=== PATIENT | female | born 1950 | race Caucasian/White ===

== ENCOUNTER 2016-01-25 12:49 | Outpatient (RCR) | payer BC ==
[~2016-01-25 12:49] MED LIST: ALPR0.254 PO; APIX5TAB PO; ASPI-586 PO; BUSP5TAB59 PO; CETI10TA17 PO; CHOL10003 PO; CYCL10TA9 PO; ENOX100D4 SC; ESCI20TA45 PO; ESCI5TAB PO; EXEN10PE SQ; FERR-84 PO; FLT05NA16; FURO40TA4 PO; HYDR-3812 PO; LEVO75TA6 PO; LEVO88TA26 PO; LOSA50TA6 PO; LYSI500T3 PO; METF-380 PO; METF500T4 PO; MULT-35 PO; OMEG-12 PO; OMEP20TA2 PO; POTA20PA28 PO; POTA20TA15 PO; SIMV40TA4 PO; TRM50T PO; WARF2TAB PO; WARF5TAB PO; ZINC50TA51 PO
[2016-01-25 13:04] LABS: BASOPHILS % (AUTO) 1 % (0-10); EOSINOPHILS # (AUTO) 0.1 10^3/uL (0.0-0.3); EOSINOPHILS % (AUTO) 2 % (0-10); LYMPHOCYTES % (AUTO) 51 % (12-44); MEAN CORPUSCULAR HEMOGLOBIN 29 PG (25-34); MEAN CORPUSCULAR HGB CONC 33 G/DL (32-36); MEAN CORPUSCULAR VOLUME 89 FL (80-99); MEAN PLATELET VOLUME 9.3 FL (7.4-10.4); MONOCYTES # (AUTO) 0.4 X 10^3 (0.0-1.0); MONOCYTES % (AUTO) 7 % (0-12); NEUTROPHILS # (AUTO) 2.3 X 10^3 (1.8-7.8); NEUTROPHILS % (AUTO) 39 % (42-75); PLATELET COUNT 240 10^3/uL (130-400); RED BLOOD COUNT 4.18 10^6/uL (4.35-5.85); RED CELL DISTRIBUTION WIDTH 13.5 % (10.0-14.5); WHITE BLOOD COUNT 5.8 10^3/uL (4.3-11.0)
[2016-01-25 13:31] LABS: ALANINE AMINOTRANSFERASE 25 U/L (0-55); ALBUMIN 4.5 G/DL (3.2-4.5); ANION GAP 10 MMOL/L (5-14); ASPARTATE AMINO TRANSFERASE 15 U/L (5-34); BILIRUBIN,TOTAL 0.5 MG/DL (0.1-1.0); BLOOD UREA NITROGEN 15 MG/DL (7-18); BUN/CREATININE RATIO 16; CALCIUM 9.6 MG/DL (8.5-10.1); CARBON DIOXIDE 25 MMOL/L (21-32); CHLORIDE 105 MMOL/L (98-107); CREATININE SERUM 0.91 MG/DL (0.60-1.30); GFR ESTIMATED > 60; GLUCOSE 107 MG/DL (70-105); POTASSIUM 4.3 MMOL/L (3.6-5.0); SODIUM 140 MMOL/L (135-145)
== END 2016-04-24 | disposition home or self-care (01) ==
LOC: ONC 12:49
PROVIDERS: ATTEND Internal Medicine Hematology & Oncology
DX: I27.82 Chronic pulmonary embolism (principal); I10 Essential (primary) hypertension; E78.5 Hyperlipidemia, unspecified; F32.9 Major depressive disorder, single episode, unspecified; E03.9 Hypothyroidism, unspecified; E11.9 Type 2 diabetes mellitus without complications; Z79.01 Long term (current) use of anticoagulants; Z79.899 Other long term (current) drug therapy
CPT/HCPCS: 36415; 80053; 85025; 99213

== ENCOUNTER 2016-05-03 20:09 | Outpatient (CLI) | payer BC | END 2016-05-04 06:50 | disposition home or self-care (01) | LOC: SLEEP 20:09 | PROVIDERS: ATTEND Internal Medicine Critical Care Medicine | DX: G47.33 Obstructive sleep apnea (adult) (pediatric) (principal) | CPT/HCPCS: 95811 ==

== ENCOUNTER 2016-05-09 13:16 | Outpatient (RCR) | payer BC ==
[2016-04-25 10:04] LABS: BASOPHILS % (AUTO) 0 % (0-10); EOSINOPHILS # (AUTO) 0.1 10^3/uL (0.0-0.3); EOSINOPHILS % (AUTO) 2 % (0-10); LYMPHOCYTES # (AUTO) 2.8 X 10^3 (1.0-4.0); LYMPHOCYTES % (AUTO) 41 % (12-44); MEAN CORPUSCULAR HEMOGLOBIN 28 PG (25-34); MEAN CORPUSCULAR HGB CONC 32 G/DL (32-36); MEAN CORPUSCULAR VOLUME 89 FL (80-99); MEAN PLATELET VOLUME 9.3 FL (7.4-10.4); MONOCYTES # (AUTO) 0.5 X 10^3 (0.0-1.0); MONOCYTES % (AUTO) 8 % (0-12); NEUTROPHILS # (AUTO) 3.4 X 10^3 (1.8-7.8); NEUTROPHILS % (AUTO) 50 % (42-75); PLATELET COUNT 280 10^3/uL (130-400); RED BLOOD COUNT 4.49 10^6/uL (4.35-5.85); RED CELL DISTRIBUTION WIDTH 13.7 % (10.0-14.5); WHITE BLOOD COUNT 6.8 10^3/uL (4.3-11.0)
[2016-04-26 09:03] LABS: HOMOCYSTEINE 13.2 umol/L (<=10.3)
[2016-05-01 06:46] LABS: PROTEIN C FUNCTIONAL ASSAY 206 % (70-130)
== END 2016-07-24 | disposition home or self-care (01) ==
LOC: ONC 13:16
PROVIDERS: ATTEND Internal Medicine Hematology & Oncology
DX: I27.82 Chronic pulmonary embolism (principal); I10 Essential (primary) hypertension; E78.5 Hyperlipidemia, unspecified; F32.9 Major depressive disorder, single episode, unspecified; E03.9 Hypothyroidism, unspecified; E11.9 Type 2 diabetes mellitus without complications; Z79.01 Long term (current) use of anticoagulants; Z79.899 Other long term (current) drug therapy
CPT/HCPCS: 36415; 81241; 83090; 85025; 85300; 85303; 85306; 86147; 99213

== ENCOUNTER → 2016-06-27 | Outpatient (CLI) | payer BC ==
--- NOTE | 2016-06-28 08:28 | Diagnostic Imaging Report ---
Bilateral screening mammogram The current study was also evaluated with a Computer Aided Detection (CAD) system. INDICATION: Screening. No current complaints stated on the questionnaire. COMPARISON: 07/03/15. FINDINGS: The breasts are composed of heterogeneously dense parenchyma which may decrease mammographic sensitivity. There is a medial right breast 7 mm asymmetry seen on the CC projection with no definite MLO correlate. The left breast demonstrate no change. No suspicious calcifications. IMPRESSION: Focal compression view and ultrasound evaluation for medial right breast asymmetry recommended. ACR BI-RADS Category 0: Incomplete. (Needs additional imaging evaluation). Result letter will be mailed to the patient. Note: At least 10% of breast cancer is not imaged by mammography. Dictated by: Dictated on workstation # [id number]
== END ==
LOC: RAD 10:52
PROVIDERS: ATTEND Internal Medicine
DX: Z12.31 Encounter for screening mammogram for malignant neoplasm of breast (principal)
CPT/HCPCS: 77067

== ENCOUNTER → 2016-07-09 | Outpatient (CLI) | payer BC ==
--- NOTE | 2016-07-09 12:12 | Diagnostic Imaging Report ---
EXAMINATION: Right breast diagnostic mammogram with a Computer Aided Detection (CAD) system. COMPARISON: 06/28/2013. FINDINGS: There is an asymmetry in the medial aspect of the right breast which appears less prominent on focal compression view and similar to the rest of the dense background parenchyma, suggestive of summation artifact. IMPRESSION: No definite underlying abnormality with the asymmetry likely related to summation artifact of parenchyma in the medial aspect of the right breast. The ultrasound evaluation is pending. ACR BI-RADS Category 0: Incomplete. (Needs additional imaging evaluation). Result letter will be mailed to the patient. Note: At least 10% of breast cancer is not imaged by mammography. Dictated by: Dictated on workstation # [id number]
--- NOTE | 2016-07-09 12:13 | Diagnostic Imaging Report ---
EXAMINATION: Right breast ultrasound. INDICATION: Right breast asymmetry. FINDINGS: Unremarkable breast parenchyma is seen with no focal lesion. IMPRESSION: Negative study. Additional mammographic imaging demonstrates no significant abnormality and the findings are likely secondary to summation artifact of parenchyma. Annual screening mammograms are recommended. ACR BI-RADS Category 1: Negative. Dictated by: Dictated on workstation # [id number]
== END ==
LOC: RAD 07:46
PROVIDERS: ATTEND Internal Medicine
DX: R92.8 Other abnormal and inconclusive findings on diagnostic imaging of breast (principal)

== ENCOUNTER → 2016-09-12 | Outpatient (CLI) | payer BC ==
--- NOTE | 2016-09-12 17:53 | Diagnostic Imaging Report ---
INDICATION: Injury to left foot. EXAMINATION: AP, oblique and lateral views of the left foot were obtained. FINDINGS: There is plantar calcaneal spurring. There is mild degenerative change of the first MTP joint. No acute fracture or acute bony abnormality is seen. IMPRESSION: Chronic changes with no acute bony abnormality. Dictated by: Dictated on workstation # [id number]
== END ==
LOC: RAD 15:25
PROVIDERS: ATTEND Internal Medicine
DX: S99.922A Unspecified injury of left foot, initial encounter (principal); M77.32 Calcaneal spur, left foot; X58.XXXA Exposure to other specified factors, initial encounter; Y99.8 Other external cause status
CPT/HCPCS: 73630

== ENCOUNTER → 2016-09-12 | Outpatient (CLI) | payer BC ==
--- NOTE | 2016-09-12 17:19 | Diagnostic Imaging Report ---
PROCEDURE: US left lower extremity venous. TECHNIQUE: Multiple real-time grayscale images were obtained over the left lower extremity in various projections. Additional duplex Doppler and color Doppler images were also obtained. INDICATION: Left foot swelling. Comparison: None available. Findings: The left common femoral, femoral and popliteal veins are patent without evidence of DVT. Visualized proximal aspects of the greater saphenous, deep femoral, posterior tibial and peroneal veins are also patent. All of the evaluated deep venous structures demonstrate normal compressibility and waveform augmentation where applicable. Impression: No left lower extremity deep venous thrombosis (DVT). Dictated by: Dictated on workstation # [id number]
== END ==
LOC: RAD 16:57
PROVIDERS: ATTEND Internal Medicine
DX: R22.42 Localized swelling, mass and lump, left lower limb (principal)

== ENCOUNTER → 2017-04-24 | Outpatient (CLI) | payer MEDICARE, OTHER ==
[~2017-04-24] MED LIST changes: +ACHD5005 PO; -HYDR-3812 PO
--- NOTE | 2017-04-24 12:24 | Diagnostic Imaging Report ---
INDICATION: Pneumonia, influenza. COMPARISON: 12/09/12 FINDINGS: Frontal and lateral views of the chest demonstrate clear lungs bilaterally. The heart is normal. There is no pneumothorax. Osseous structures age-appropriate. IMPRESSION: Negative chest. Dictated by: Dictated on workstation # [id number]
== END ==
LOC: RAD 11:37
PROVIDERS: ATTEND Internal Medicine
DX: J11.00 Influenza due to unidentified influenza virus with unspecified type of pneumonia (principal)
CPT/HCPCS: 71046

== ENCOUNTER → 2017-06-27 | Outpatient (CLI) | payer MEDICARE, OTHER ==
[~2017-06-27] MED LIST changes: +CATHETER FLUSH 10 ML SYR IV PRN; +IOHEXOL 350 MG/ML 150 ML (OMNIPAQUE 350) VIAL IV ONE; -METF500T4 PO; +METF500T5 PO; +NS 250 ML (IVPB) BAG IV ONE
[2017-06-27 11:40] LABS: CREATININE SERUM 1.02 MG/DL (0.60-1.30)
== END ==
LOC: CARD 10:27
PROVIDERS: ATTEND Nurse Practitioner Family
DX: R06.02 Shortness of breath (principal)
CPT/HCPCS: 36415; 82565; 84520; 93306

== ENCOUNTER → 2017-06-30 | Outpatient (CLI) | payer MEDICARE, OTHER ==
[~2017-06-30] MED LIST changes: -CATHETER FLUSH 10 ML SYR IV PRN; -IOHEXOL 350 MG/ML 150 ML (OMNIPAQUE 350) VIAL IV ONE; -NS 250 ML (IVPB) BAG IV ONE
--- NOTE | 2017-06-30 12:19 | Diagnostic Imaging Report ---
INDICATION: Routine screening. COMPARISON: 07/03/2015 and 06/27/2016. TECHNIQUE: Screening digital mammography was performed bilaterally with a Computer Aided Detection (CAD) system. 3D tomographic images were obtained and reviewed. FINDINGS: Both breasts are heterogeneously dense, limiting the sensitivity of mammography. No dominant mass or malignant appearing microcalcifications are seen. The axillae are unremarkable. IMPRESSION: No mammographic features suspicious for malignancy are identified. ACR BI-RADS Category 0: Incomplete. (Needs additional imaging evaluation). Result letter will be mailed to the patient. Note: At least 10% of breast cancer is not imaged by mammography. Dictated by: Dictated on workstation # [id number]
== END ==
LOC: RAD 10:00
PROVIDERS: ATTEND Internal Medicine
DX: Z12.31 Encounter for screening mammogram for malignant neoplasm of breast (principal)
CPT/HCPCS: 77067

== ENCOUNTER → 2017-07-02 | Outpatient (CLI) | payer MEDICARE, OTHER ==
[~2017-07-02] MED LIST changes: +RT-ALBUTEROL SULF 2.5 MG/3 ML PRE-MIX VIAL INH ONE
== END ==
LOC: RT 12:38
PROVIDERS: ATTEND Nurse Practitioner Family
DX: R06.02 Shortness of breath (principal)
CPT/HCPCS: 94060; 94726; 94729

== ENCOUNTER → 2018-08-24 | Outpatient (CLI) | payer MEDICARE, OTHER ==
[~2018-08-24] MED LIST changes: +METF-397 PO; -METF500T5 PO
== END ==
LOC: RT 07:56
PROVIDERS: ATTEND Nurse Practitioner Family
DX: G47.33 Obstructive sleep apnea (adult) (pediatric) (principal); R06.02 Shortness of breath; J45.998 Other asthma; J30.9 Allergic rhinitis, unspecified
CPT/HCPCS: 94060; 94726; 94729

== ENCOUNTER → 2018-08-24 | Outpatient (CLI) | payer MEDICARE, OTHER ==
[~2018-08-24] MED LIST changes: -RT-ALBUTEROL SULF 2.5 MG/3 ML PRE-MIX VIAL INH ONE
== END ==
LOC: CARD 12:15
PROVIDERS: ATTEND Internal Medicine Cardiovascular Disease
DX: R60.0 Localized edema (principal); E78.2 Mixed hyperlipidemia; E11.9 Type 2 diabetes mellitus without complications; R06.02 Shortness of breath; I08.1 Rheumatic disorders of both mitral and tricuspid valves
CPT/HCPCS: 93306

== ENCOUNTER → 2018-10-09 | Outpatient (CLI) | payer MEDICARE, OTHER ==
--- NOTE | 2018-10-09 20:18 | Diagnostic Imaging Report ---
INDICATION: Screening The current study was also evaluated with a Computer Aided Detection (CAD) system. 3-D Tomographic imaging was also performed. Comparison made with prior examinations from 06/30/2017, 06/27/2016, and 07/03/2015. FINDINGS: There are scattered fibroglandular densities bilaterally. There is no dominant mass, spiculated lesion, or suspicious calcification identified. The skin, nipples, and axillae are unremarkable. IMPRESSION: Negative. ACR BI-RADS Category 1: Negative. Result letter will be mailed to the patient. Note: At least 10% of breast cancer is not imaged by mammography. Dictated by: Dictated on workstation # [id number]
== END ==
LOC: RAD 09:12
PROVIDERS: ATTEND Internal Medicine
DX: Z12.31 Encounter for screening mammogram for malignant neoplasm of breast (principal)
CPT/HCPCS: 77067

== ENCOUNTER 2018-11-04 12:00 | Inpatient (IN) | payer MEDICARE, OTHER ==
[~2018-11-04] VITALS: Ht 172 cm; Wt 96.2 kg
[2019-01-26] MEDS ORDERED: CETI10TA17 PO (13:08)
[2019-01-26] MEDS ORDERED: ASPI-983 PO (13:08)
[2019-01-26] MEDS ORDERED: LYSI500T PO (13:08)
[2019-01-26] MEDS ORDERED: OMG1KC PO (13:08)
[2019-01-26] MEDS ORDERED: MULT1TAB69 PO (13:08)
[2019-01-26] MEDS ORDERED: FOLI0.8C PO (13:08)
[2019-01-26] MEDS ORDERED: GARL10002 PO (13:08)
[2019-01-26] MEDS ORDERED: CRAN1CAP3 PO (13:08)
[2019-01-26] MEDS ORDERED: ASCO10006 PO (13:08)
[2019-01-26] MEDS ORDERED: OLIV250C PO (13:08)
[2019-01-26] MEDS ORDERED: FERR240T15 PO (13:08)
[2019-01-26] MEDS ORDERED: METF-397 PO (13:12)
[2019-01-26] MEDS ORDERED: FURO40TA4 PO (13:12)
[2019-01-26] MEDS ORDERED: FLUT1DIS26 IH (13:12)
[2019-01-26] MEDS ORDERED: RT-ALBUINH INH (13:12)
[2019-01-26] MEDS ORDERED: MONT10TA24 PO (13:12)
[2019-01-26] MEDS ORDERED: OMEP40CA36 PO (13:12)
[2019-01-26] MEDS ORDERED: SIMV40TA4 PO (13:12)
[2019-01-26] MEDS ORDERED: MELO15TA39 PO (13:12)
[2019-01-26] MEDS ORDERED: ALPR0.5T7 PO (13:12)
[2019-01-26] MEDS ORDERED: LOSA100T57 PO (13:13)
[2019-01-26] MEDS ORDERED: LEVO88TA54 PO (13:24)
[2019-01-26] MEDS ORDERED: TRAM50TA2 PO (13:25)
--- NOTE | 2019-01-26 14:04 | NUR ---
PATIENT BROUGHT A MEDICATION IN TO PREOP. I CALLED [facility] AND [facility]IL ORDER TO VERIFY PRESCRIPTIONS. TREVOR FILLED: 12-31-18 ALPRAZOLAM 0.5MG PRN #60 01-12-19 TRAMADOL 50MG QID PRN #120 (WAS NOT ON HER LIST, I ADDED IT TO MED REC) FALGUNI FILLED: 01-13-19 OMEPRAZOLE 40MG #90 01-13-19 LEVOTHYROXINE 88MCG #90 (HAD 75MCG ON HER LIST, UPDATED WITH NEW DOSE) 01-13-19 LOSARTAN 100MG #90 01-13-19 SIMVASTATIN 40MG #90 01-13-19 ESCITALOPRAM 20MG #90 01-13-19 POTASSIUM 20MEQ #90 01-13-19 BUSPIRONE 5MG #90 01-13-19 METFORMIN 500MG #180 01-13-19 FUROSEMIDE 40MG #90 12-11-18 MONTELUKAST 10MG #90 12-04-18 MELOXICAM 15MG #90 ADVAIR 250 AND VENTOLIN ARE ON HER LIST HOWEVER HAVE NOT BEEN FILLED RECENTLY BY [facility] OR [facility]. I CALLED AND LEFT A MESSAGE WITH THE PATIENT TO CALL ME BACK TO SEE IF SHE GETS SAMPLES OF THESE AND TO ASK IF SHE IS TAKING TRAMADOL AND IF HER DOSE HAS CHANGED ON HER LEVOTHYROXINE. I HAVE NOT RECEIVED A CALL BACK AT THIS TIME, I WILL UPDATE WHEN SHE RETURNS MY CALL OTHERWISE I DID ADD THE TRAMADOL TO THE MED REC AND UPDATED THE DOSE OF THEY LEVOTHYROXINE TO WHAT WAS MOST RECENTLY FILLED. I LEFT THE ADVAIR AND VENTOLIN ON THE MED REC REPORTED ON HER HOME LIST. OTC MEDS: ASPIRIN 81MG DAILY ZYRTEC 10MG DAILY MTV DAILY L LYSINE 500MG DAILY FISH OIL 3 DAILY FERROUS GLUCONATE 27MG DAILY GARLIC 1000MG DAILY FOLIC ACID 800MCG DAILY CRANBERRY 2 DAILY VITAMIN C 1000MG DAILY OLIVE LEAF EXTRACT DAILY Addendum: 01/26/19 at 1500 by BILL STEEN [facility] PATIENT CALLED ME BACK AT THIS TIME AND VERIFIED SHE IS TAKING THE 88MCG LEVOTHYROXINE AND IS TAKING TRAMADOL RIGHT NOW THAT WAS NOT ON HER LIST. THEY STATE SHE DID GET SAMPLES OF THE ADVAIR AND VENTOLIN.
[2019-02-02] VITALS (12 sets, daily range): BP systolic 100–145; BP diastolic 52–86
[2019-02-02] MEDS ORDERED: CLINDAMYCIN 900 MG/50 ML IVPB 50 ML IV ONE ×2 (06:37→06:45)
[2019-02-02] MEDS ORDERED: GABAPENTIN 600 MG (NEURONTIN) TAB ONE (06:37)
[2019-02-02] MEDS ORDERED: ONDANSETRON 4 MG/2 ML (SDV) Z0FRAN ONE (06:37)
[2019-02-02] MEDS ORDERED: CELECOXIB 100 MG (CeleBREX) CAP PO ONE ×2 (06:37→06:45)
[2019-02-02] MEDS ORDERED: fentaNYL INJECTION 250 MCG/5 ML AMP ONE (06:43)
[2019-02-02] MEDS ORDERED: proPOfol 200 MG/20 ML (DIPRIVAN) VIAL IV ONE (06:43)
[2019-02-02] MEDS ORDERED: LIDOCAINE PF 2% 5 ML (XYLOCAINE) VIAL ONE ×2 (06:43→07:30)
[2019-02-02] MEDS ORDERED: SEVOFLURANE (ULTANE) 15 ML INHAL SOLN ONE ×9 (06:43→10:12)
[2019-02-02] MEDS ORDERED: MIDAZOLAM 2 MG/2 ML (VERSED) VIAL ONE (06:44)
[2019-02-02] MEDS ORDERED: ONDANSETRON 4 MG/2 ML (SDV) Z0FRAN IVP ONE (06:45)
[2019-02-02] MEDS ORDERED: fentaNYL INJECTION 100 MCG/2 ML AMP ONE ×2 (06:45→08:49)
[2019-02-02] MEDS ORDERED: GABAPENTIN 600 MG (NEURONTIN) TAB PO ONE (06:45)
[2019-02-02] MEDS: LACTATED RINGERS 1,000 ML IV PRN ×2 (06:52→08:50)
[2019-02-02] MEDS ORDERED: GENTAMICIN 40 MG/ML 2 ML INJ SDV ONE (06:53)
[2019-02-02] MEDS ORDERED: NEO/POLY/BAC (NEOSPORIN) OINT 15 GM TUBE ONE (06:54)
[2019-02-02] MEDS ORDERED: BUPIVACAINE 0.5% 30 ML (SENSORCAINE) VIAL ONE (07:30)
[2019-02-02] MEDS ORDERED: ONDANSETRON 4 MG/2 ML (SDV) Z0FRAN IV PRN (07:45)
[2019-02-02] MEDS ORDERED: ONDANSETRON 4 MG (ZOFRAN) ORAL DISSOLVE TAB PO PRN (07:45)
[2019-02-02] MEDS ORDERED: BISACODYL 10 MG SUPP (DULCOLAX) PR PRN (07:45)
[2019-02-02] MEDS ORDERED: morphine INJ 4 MG/ML 1 ML (VIAL/SYRINGE) IV PRN (07:45)
[2019-02-02] MEDS ORDERED: MILK OF MAGNESIA 400 MG/5 ML 30 ML UDC PO PRN (07:45)
[2019-02-02] MEDS ORDERED: D5 1/2 NS 1000 ML IV SOLUTION 1,000 ML IV SCH (07:45)
[2019-02-02] MEDS ORDERED: INTRA-ARTICULAR IU ONE ×4 (07:45)
[2019-02-02] MEDS ORDERED: diphenhydrAMINE 50 MG/ML INJ (BENADRYL) IV PRN (07:45)
--- NOTE | 2019-02-02 07:55 | Progress Note-Pre Operative ---
Pre-Operative Progress Note H&P Reviewed The H&P was reviewed, patient examined and no changes noted. Date Seen by Provider: Feb 02, 2019 Time Seen by Provider: 07:40 Date H&P Reviewed: Feb 02, 2019 Time H&P Reviewed: 07:40 Pre-Operative Diagnosis: Primary Osteoarthritis Left Knee JOSEPH ORTIZ DO Feb 02, 2019 07:55 POS
[2019-02-02] MEDS ORDERED: RT-ALBUTEROL SULF 2.5 MG/3 ML PRE-MIX VIAL INH PRN (08:00)
[2019-02-02] MEDS ORDERED: ALPRAZolam 0.5 MG (XANAX) TAB PO PRN (08:00)
[2019-02-02] MEDS ORDERED: TRANEXAMIC ACID 100 MG/ML 10 ML INJECTION IV ONE (08:12)
[2019-02-02] MEDS ORDERED: NON-FORMULARY MEDICATION 1 EA EA (Omeprazole 40 MG) PO SCH (09:00)
[2019-02-02] MEDS ORDERED: NON-FORMULARY MEDICATION 1 EA EA (Cetirizine HCl 10 MG) PO SCH (09:00)
[2019-02-02] MEDS: LEVOTHYROXINE 88 MCG (LEVOTHORID) TAB PO SCH (09:00)
[2019-02-02] MEDS ORDERED: FERROUS GLUCONATE 240 MG PO SCH (09:00)
[2019-02-02] MEDS ORDERED: NON-FORMULARY MEDICATION 1 EA EA (Metformin HCl 500 MG) PO SCH (09:00)
[2019-02-02] MEDS: LOSARTAN 100 MG (COZAAR) TABLET PO SCH (09:00)
[2019-02-02] MEDS ORDERED: NON-FORMULARY MEDICATION 1 EA EA (Fluticasone/Salmeterol (Advair 250-50 Diskus) 1 PUFF) IH SCH (09:00)
[2019-02-02] MEDS: ASPIRIN E.C. 81 MG (ECOTRIN) TAB PO SCH (09:00)
[2019-02-02] MEDS ORDERED: ASPIRIN E.C. 325 MG (ECOTRIN) TABLET PO SCH (09:00)
[2019-02-02] MEDS ORDERED: NON-FORMULARY MEDICATION 1 EA EA (Folic Acid 0.8 MG) PO SCH (09:00)
[2019-02-02] MEDS: FUROSEMIDE 40 MG (LASIX) TAB PO SCH (09:00)
--- NOTE | 2019-02-02 10:17 | Progress Note-Post Operative ---
Post-Operative Progess Note Surgeon (s)/Associate Creative Director (s) Surgeon JOSEPH ORTIZ DO Associate Creative Director: Isaias Smith PIPE FITTER SUPERVISOR MAINTENANCE-Isabella Pre-Operative Diagnosis Primary Osteoarthritis Left Knee Post-Operative Diagnosis same Procedure & Operative Findings Date of Procedure 02/02/19 Procedure Performed/Findings Left Total Knee Arthroplasty Anesthesia Type General with femoral and genicular block Estimated Blood Loss Estimated blood loss (mL): 200 ml Specimens/Packing Specimens Removed none JOSEPH ORTIZ DO Feb 02, 2019 10:17 POS
[2019-02-02] MEDS ORDERED: ONDANSETRON 4 MG/2 ML (SDV) Z0FRAN IVP PRN (10:30)
[2019-02-02] MEDS ORDERED: morphine INJ 10 MG/ML 1ML (SYR OR VIAL) IVP ONE (10:30)
[2019-02-02] MEDS ORDERED: HYDROmorphone 2 MG/ML VIAL (DILAUDID) IV ONE (10:30)
--- NOTE | 2019-02-02 11:20 | NUR ---
JAYLEN LOREDO admitted to room 431-1, with an admitting diagnosis of LEFT TKR, on 02/02/19 [address] [facility] via [facility], accompanied by STAFF.JAYLEN LOREDO V introduced to surroundings, call light, bed controls, phone, TV, temperature control, lights, meal times, smoking policy, visitor policy, side rail policy, bathrooms and showers. Patient Rights given to patient in the handbook.JAYLEN LOREDO V verbalizes understanding that [facility] is not responsible for the loss or damage to any personal effects or valuables that are kept in the patients posession during their hospitalization. The following Patient Care Plans were discussed with the PT: Discharge Planning, PAIN CONTROL,IV THERAPY, and POST-OP CARE AND TESTS AND PROCEDURES. JAYLEN LOREDO V verbalizes understanding of Interdisciplinary Patient Education. Patient and/or family were informed about the Rapid Response Team and its purpose.
[2019-02-02] MEDS: HYDROcodone/APAP 10 MG/325 MG (LORTAB) TAB PO PRN (11:57)
[2019-02-02] MEDS ORDERED: D5 1/2 NS 1000 ML IV SOLUTION 1,000 ML IV ONE (12:00)
--- NOTE | 2019-02-02 12:33 | Diagnostic Imaging Report ---
INDICATION: Postop total knee. FINDINGS: There is post operative swelling, gas, and fluid as expected findings with soft tissue tracey anteriorly. The hardware appears intact and in good alignment. The residual osseous structures show no fracture. IMPRESSION: No unexpected finding on the postop total left knee. Dictated by: Dictated on workstation # [id number]
[2019-02-02] MEDS: ENOXAPARIN 40 MG/0.4 ML (LOVENOX) SYR SC SCH (14:39)
[2019-02-02] MEDS: ACETAMINOPHEN 500 MG TAB (TYLENOL) PO SCH ×3 (14:48→23:49)
[2019-02-02] MEDS: KETOROLAC 30 MG/ML VIAL IV SCH ×3 (14:48→23:49)
[2019-02-02] MEDS: GABAPENTIN 100 MG (NEURONTIN) CAP PO SCH ×2 (14:48→21:29)
[2019-02-02] MEDS: D5 1/2 NS 1000 ML IV SOLUTION 1,000 ML IV SCH ×2 (15:22→17:42)
[2019-02-02] MEDS: PANTOPRAZOLE 40 MG (PROTONIX) TAB PO SCH (17:23)
[2019-02-02] MEDS: CLINDAMYCIN 900 MG/50 ML IVPB 50 ML IV SCH ×2 (17:23→23:50)
[2019-02-02] MEDS: KCL 20 MEQ TAB (K-DUR) PO SCH (17:23)
[2019-02-02] MEDS: metFORMIN 500 MG (GLUCOPHAGE) TAB PO SCH (17:29)
[2019-02-02] MEDS: RT-ADVAIR HFA 115/21 MCG PER PUFF IH SCH (20:20)
[2019-02-02] MEDS ORDERED: NON-FORMULARY MEDICATION 1 EA EA (Buspirone HCl 5 MG) PO SCH (21:00)
[2019-02-02] MEDS ORDERED: NON-FORMULARY MEDICATION 1 EA EA (Escitalopram Oxalate 20 MG) PO SCH (21:00)
[2019-02-02] MEDS: MONTELUKAST 10 MG (SINGULAIR) TAB PO SCH (21:29)
[2019-02-02] MEDS: SENNA W/DOCUSATE (SENOKOT S) TABLET PO SCH (21:30)
[2019-02-02] MEDS: busPIRone 5 MG (BUSPAR) TAB PO SCH (21:30)
[2019-02-03 00:30] VITALS: BP 107/66
[2019-02-03 04:00] VITALS: BP 125/70
[2019-02-03 04:58] LABS: HEMOGLOBIN 9.1 G/DL (11.5-16.0); MEAN PLATELET VOLUME 9.7 FL (7.4-10.4); RED CELL DISTRIBUTION WIDTH 13.5 % (10.0-14.5); WHITE BLOOD COUNT 8.1 10^3/uL (4.3-11.0)
[2019-02-03 05:19] LABS: CALCIUM 7.9 MG/DL (8.5-10.1); CREATININE SERUM 1.03 MG/DL (0.60-1.30); POTASSIUM 4.2 MMOL/L (3.6-5.0)
[2019-02-03] MEDS: LEVOTHYROXINE 88 MCG (LEVOTHORID) TAB PO SCH (05:19)
[2019-02-03] MEDS: ACETAMINOPHEN 500 MG TAB (TYLENOL) PO SCH ×4 (05:20→23:26)
[2019-02-03] MEDS: KETOROLAC 30 MG/ML VIAL IV SCH (05:22)
[2019-02-03] MEDS: GABAPENTIN 100 MG (NEURONTIN) CAP PO SCH ×3 (05:22→21:03)
[2019-02-03] MEDS ORDERED: FERROUS SULF 325 MG (IRON) TAB PO SCH (07:00)
[2019-02-03] MEDS: metFORMIN 500 MG (GLUCOPHAGE) TAB PO SCH ×2 (07:25→17:25)
[2019-02-03] MEDS: ENOXAPARIN 40 MG/0.4 ML (LOVENOX) SYR SC SCH (07:25)
[2019-02-03] MEDS: RT-ADVAIR HFA 115/21 MCG PER PUFF IH SCH ×2 (07:44→22:39)
--- NOTE | 2019-02-03 07:51 | Consultation - Hospitalist ---
HPI History of Present Illness: HPI/Chief Complaint Chief complaint: Left TKA by Dr. Yeh HPI: This is a 68[facility] clinic Pt of mine with diabetes, hypertension and hypothyroidism, who presents after an uncomplicated Left knee replacement by Dr. Yeh. She has. a history of DVT with PE so she will be placed on Lovenox per protocol and will require 4-6 weeks of anticoagulation afterwards per Dr. Pugh. Pt doing much better Will DC Lovenox and start on Eliquis and she will need six days of 2.5 mg twice daily Hgb 9.1 Doing very well and has not required narcotics Source: patient Exam Limitations: no limitations Date Seen 02/03/19 Attending Physician Jcarlos Yeh DO PCP Snow Gonzalez DO Referring Physician Date of Admission Feb 02, 2019 at 05:45 Home Medications & Allergies Home Medications Reviewed patient Home Medication Reconciliation performed by pharmacy medication reconciliations wafer fabrication technician and/or nursing. Patients Allergies have been reviewed. Allergies Allergies Coded Allergies Penicillins (Unverified Allergy, Severe, ANAPHYLAXIS, 01/26/19) Past Sowbvse-Kjjhwo-Gtohbm Hx Past Med/Social Hx: Reviewed Nursing Past Med/Soc Hx, Reviewed and Corrections made Patient Social History Marrital Status: Employed/Student: retired Alcohol Use: Denies Use Recreational Drug Use: No Smoking Status: Never a Smoker Physical Abuse Screen: No Sexual Abuse: No Recent Foreign Travel: No Contact w/other who traveled: No Recent Hopitalizations: No Recent Infectious Disease Expo: No Immunizations Up To Date Tetanus Booster (TDap): Unknown Pediatric: Yes Date of Pneumonia Vaccine: Dec 23, 2016 Seasonal Allergies Seasonal Allergies: Yes Past Medical History Surgeries: Hysterectomy, Orthopedic Respiratory: Pulmonary Embolism Currently Using CPAP: No Currently Using BIPAP: No Cardiac: Chronic Edema/Swelling, High Cholesterol, Hypertension Reproductive: No Sexually Transmitted Disease: No HIV/AIDS: No Female Reproductive Disorders: Denies Gastrointestinal: Gastroesophageal Reflux Musculoskeletal: Arthritis Endocrine: Hypothyroidsim, Diabetes, Non-Insulin dep Loss of Vision: Denies Hearing Impairment: Denies Psychosocial: Anxiety History of Blood Disorders: Yes (HX JAMEL PE AND DAUGTER OF BLOOD CLOT POST OP) Adverse Reaction to Blood Elias: No (N/A) Family History Arthritis 19 FATHER 19 MOTHER Cardiovascular disease 19 FATHER 19 MOTHER Diabetes mellitus 19 MOTHER FH: cancer 19 FATHER FH: lung cancer 19 FATHER Hypercholesterolemia 19 FATHER 19 MOTHER Myocardial infarction 19 MOTHER CAD Over 55 Years Old Review of Systems Constitutional: see HPI Musculoskeletal: joint pain Physical Exam Physical Exam Vital Signs Vital Signs - First Documented 02/02/19 06:25 Temp 35.6 Pulse 88 Resp 16 B/P (MAP) 145/78 Pulse Ox 96 O2 Delivery Room Air Capillary Refill : Less Than 3 Seconds Height, Weight, BMI Height: 5'8.00" Weight: 213lbs. 0.0oz. 96.089505sl; 32.51 BMI Method:Stated General Appearance: No Apparent Distress, WD/WN, Chronically ill Eyes: Bilateral Eye Normal Inspection, Bilateral Eye PERRL HEENT: PERRL/EOMI, Normal ENT Inspection, Pharynx Normal Neck: Full Range of Motion, Normal Inspection, Non Tender, Supple, Carotid Bruit Respiratory: Chest Non Tender, Lungs Clear, Normal Breath Sounds, No Accessory Muscle Use, No Respiratory Distress Cardiovascular: Regular Rate, Rhythm, No Edema, No Gallop, No JVD, No Murmur, Normal Peripheral Pulses Gastrointestinal: Normal Bowel Sounds, No Organomegaly, No Pulsatile Mass, Non Tender, Soft Back: Normal Inspection, No CVA Tenderness, No Vertebral Tenderness Extremity: Normal Capillary Refill, Normal Inspection, Normal Range of Motion, Non Tender, No Calf Tenderness, No Pedal Edema Neurologic/Psychiatric: Alert, Oriented x3, No Motor/Sensory Deficits, Normal Mood/Affect Skin: Normal Color, Warm/Dry Lymphatic: No Adenopathy Results Results/Procedures Labs Laboratory Tests 02/03/19 04:25 Patient resulted labs reviewed. Assessment/Plan Assessment and Plan Assess & Plan/Chief Complaint Assessment: Left knee replacement POD # 1 h/o PE remotely needs 6 weeks OAC DM Hypothyroidism HTN HLP Plan: Monitor closely Monitor labs OAC x 6 weeks Diagnosis/Problems Diagnosis/Problems (1) Status post left knee replacement (2) Diabetes mellitus (3) Hypothyroidism (4) Hypertension (5) Osteoarthritis of left knee Clinical Quality Measures DVT/VTE Risk/Contraindication: Risk Factor Score Per Nursin RFS Level Per Nursing on Admit: 4+=Very High SNOW GONZALEZ DO Feb 03, 2019 07:51 POS
[2019-02-03 08:00] VITALS: BP 162/67
[2019-02-03] MEDS: LORATADINE (CLARITIN) 10 MG TAB PO SCH (08:32)
[2019-02-03] MEDS: CLINDAMYCIN 900 MG/50 ML IVPB 50 ML IV SCH (08:32)
[2019-02-03] MEDS: LOSARTAN 100 MG (COZAAR) TABLET PO SCH (08:32)
[2019-02-03] MEDS: FUROSEMIDE 40 MG (LASIX) TAB PO SCH (08:32)
[2019-02-03] MEDS: FOLIC ACID 1 MG TAB PO SCH (08:32)
[2019-02-03] MEDS: PANTOPRAZOLE 40 MG (PROTONIX) TAB PO SCH (08:32)
[2019-02-03] MEDS: ASPIRIN E.C. 81 MG (ECOTRIN) TAB PO SCH (08:32)
[2019-02-03] MEDS: D5 1/2 NS 1000 ML IV SOLUTION 1,000 ML IV SCH ×2 (09:51→23:39)
--- NOTE | 2019-02-03 09:52 | NUR ---
DR. GONZALEZ IN PATIENT ROOM AT THIS TIME REPORTS THAT SHE WILL START ELIQUIS 2.5 MG PO BID X6 WEEKS FOR HISTORY OF DVT, THIS RN WILL START TODAY PER DR. GONZALEZ.
--- NOTE | 2019-02-03 09:52 | NUR ---
DISCHARGE PLANNING: This RN went in to see patient to mirian about needs for discharge. Patient reports feeling good and having been up ambulating in the benitez with PT and a walker. She is agreeable to HHC if it is ordered and has used [facility] for her mother previously and would use the if she needs HHC. She does already have all DME in home, walker, shower chair, BSC etc. No needs at this time.
--- NOTE | 2019-02-03 09:55 | Physical Therapy Evaluation ---
PT Evaluation-General Medical Diagnosis Admission Date Feb 02, 2019 at 05:45 Medical Diagnosis: S/P L TKA Onset Date: Feb 02, 2019 Therapy Diagnosis Therapy Diagnosis: abn gait, decreased strength and ROM Height/Weight Height (Feet): 5 Height (Inches): 8.00 Weight (Pounds): 213 Weight (Ounces): 0.0 Precautions Precautions/Isolations: Fall Prevention, Standard Precautions Weight Bear Status Right Lower Extremity: Right Full Weight Bearing Left Lower Extremity: Left Weight Bearing/Tolerated Referral Physician: Isaias Smith Reason for Referral: Evaluation/Treatment, Strengthening Medical History Additional Medical History Past Medical History Surgeries: Hysterectomy, Orthopedic Currently Using CPAP: No Currently Using BIPAP: No Cardiac: Chronic Edema/Swelling, High Cholesterol, Hypertension Reproductive: No Sexually Transmitted Disease: No HIV/AIDS: No Female Reproductive Disorders: Denies Gastrointestinal: Gastroesophageal Reflux Musculoskeletal: Arthritis Endocrine: Hypothyroidsim, Diabetes, Non-Insulin dep Loss of Vision: Denies Hearing Impairment: Denies Psychosocial: Anxiety History of Blood Disorders: Yes (HX JAMEL PE AND DAUGTER OF BLOOD CLOT POST OP) Adverse Reaction to Blood Elias: No (N/A) Reviewed History: Yes Social History Home: Single Level Current Living Status: Spouse Entry Into Home: Ramp PT Steps Into Home: 2 (into front door with ramp into side door) Prior Prior Level of Function SCALE: Activities may be completed with or without assistive devices. 2-Thonbjunlf-fmcklyk completes the activity by him/herself with no assistance from a helper. 5-Set-up or Clean-up Assistance-helper sets up or cleans up; patient completes activity. [place] assists only prior to or following the activity. 4-Supervision or Touching Assistance-helper provides verbal cues and/or touching/steadying and/or contact guard assistance as patient completes activity. Assistance may be provided throughout the activity or intermittently. 3-Partial/Moderate Assistance-helper does LESS THAN HALF the effort. Peninsula lifts, holds or supports trunk or limbs, but provides less than half the effort. 2-Substantial/Maximal Assistance-helper does MORE THAN HALF the effort. Peninsula lifts or holds trunk or limbs and provides more than half the effort. 2-Lvwtgjlah-oxxmyt does ALL the effort. Patient does none of the effort to complete the activity. Or, the assistance of 2 or more helpers is required for the patient to complete the activity. If activity was not attempted, code reason: 7-Patient Refused. 9-Not Applicable-not attempted and the patient did not perform the activity before the current illness, exacerbation or injury. 10-Not Attempted due to Environmental Limitations-(lack of equipment, weather restraints, etc.). 88-Not Attempted due to Medical Conditions or Safety Concerns. Bed Mobility: 6 Transfers (B,C,W/C): 6 Gait: 6 Stairs: 6 Indoor Mobility (Ambulation): Independent Stairs: Independent pt has FWW from her mother. PT Evaluation-Current Subjective pt in bed pre-tx agrees to therapy and denies any pain at this time. RN in room for meds at this time. Pt in bed post-tx with CPM in place set to 80flex and -2 past extension. pt with call light, room phone, tray table in reach with all needs met at this time. Pt/Family Goals To get back home to be indep. Objective Patient Orientation: Person, Place, Time, Situation Attachments: SCD's, Polar Pack, IV ROM/Strength ROM Lower Extremities LLE AROM flexion: 80degrees. extension: lacking 5 degrees of TKE Strength Lower Extremities LLE not tested secondary to post surgical status RLE grossly 5/5 throughout. Integumentary/Posture Integumentary see nursing notes Sensory Vision: Functional Hearing: Functional Sensation Right Lower Extremit: Intact Sensation Left Lower Extremity: Intact Transfers Roll Left to Right (QC): 6 Sit to Lying (QC): 6 Lying to Sitting/Side of Bed(Q: 6 Sit to Stand (QC): 5 Chair/Rej-xe-Baxav Xfer(QC): 4 Car Transfer (QC): 88 Gait Does the Patient Walk?: Yes Mode of Locomotion: Walk Anticipated Mode of Locomotion: Walk Walk 10 feet (QC): 5 Walk 50 ft with 2 Turns(QC): 5 Walk 150 ft (QC): 5 Walking 10ft/uneven surface-QC: 88 Distance: 150' Gait Assistive Device: FWW Comments/Gait Description pt given VC to allow L knee to flex pre swing to decrease the L hip hike she is using to clear the LLE at this time. Pt able to slightly increase knee flexion but continues to have slight hip hike. Wheelchair Training Does the Pt Use a Wheelchair?: No Wheel 50 ft with 2 turns (QC): 9 Wheel 150 ft (QC): 9 Type of Wheelchair: Manual Stairs 1 Step (curb) (QC): 88 4 Steps (QC): 88 12 Steps (QC): 88 Balance Sitting Static: Normal Sitting Dynamic: Normal Standing Static: Normal Standing Dynamic: Normal Picking up an Object (QC): 88 Treatment pt performed bed mobility training, transfer training, skilled ambulation training, education, and functional LE strengthening exercises (10 reps in supine: AP's, HS's, SLR, QS, GS, LAQ) Assessment/Needs pt is able to complete bed mobility independently and has no increase in baseline pain through session. pt is motivated and pleasant with therapy and is able to accept weight onto the LLE this session. Pt has slightly decreased stride length that increased with VC to increase hip flexion for swing. Rehab Potential: Good PT Leather Belt Shaper Goals Nursing Home Goals PT Leather Belt Shaper Goals Time Frame: Feb 10, 2019 Roll Left & Right (QC): 6 Sit to Lying (QC): 6 Lying-Sitting on Side/Bed(QC): 6 Sit to Stand (QC): 6 Chair/Vsk-ib-Cambp Xfer(QC): 6 Toilet Transfer (QC): 6 Car Transfer (QC): 88 Does the Patient Walk: Yes Walk 10 feet (QC): 6 Walk 50ft with 2 Turns (QC): 6 Walk 150 ft (QC): 6 Walking 10ft on Uneven Surface: 88 1 Step (curb) (QC): 4 4 Steps (QC): 4 12 Steps (QC): 88 Picking up an Object (QC): 88 Does the Pt use WC or Scooter?: No Type: Manual Type: Manual pt to walk 400' indep PT Plan Problem List Problem List: Activity Tolerance, Functional Strength, Safety, Balance, Gait, Transfer, Bed Mobility, ROM Treatment/Plan Treatment Plan: Continue Plan of Care Treatment Plan: Bed Mobility, Education, Functional Activity Ervin, Functional Strength, Gait, Safety, Therapeutic Exercise, Transfers Treatment Duration: Feb 10, 2019 Frequency: 11 times per week Estimated Hrs Per Day: .25 hour per day Patient and/or Family Agrees t: Yes Safety Risks/Education Patient Education: Gait Training, Transfer Techniques, Correct Positioning, Safety Issues Teaching Recipient: Patient Teaching Methods: Demonstration, Discussion Response to Teaching: Return Demonstration, Reinforcement Needed Discharge Recommendations Plan pt will perform skilled ambulation training, functional LE strengthening exercises, transfer training, and education. Therapy Discharge Recommendati: Other, See Comments (home with spouse) Time/GCodes Time In: 827 Time Out: 852 Total Billed Treatment Time: 25 Total Billed Treatment 1 visit RICHARD 10' GT 15' MANGO TIJERINA PT Feb 03, 2019 09:55 POS
--- NOTE | 2019-02-03 09:57 | Anesthesia-General Post-Op ---
General Patient Condition Mental Status/LOC: Same as Preop Cardiovascular: Satisfactory Nausea/Vomiting: Absent Respiratory: Satisfactory Pain: Controlled Complications: Absent Post Op Complications Complications None Follow Up Care/Instructions Patient Instructions None needed. Anesthesia/Patient Condition Patient Condition Patient is doing well, no complaints, stable vital signs, no apparent adverse anesthesia problems. No complications reported per nursing. D/C home per [facility] [place] Criteria: LUIS ARMANDO Ling CRNA Feb 03, 2019 09:57 POS
[2019-02-03 12:00] VITALS: BP 143/63
--- NOTE | 2019-02-03 12:25 | Progress Note ---
Subjective Date Seen by a Provider: Feb 03, 2019 Time Seen by a Provider: 12:23 Subjective/Events-last exam POD 1 s/p left TKA, no complaints. doing well. Ambulated 50ft this AM. Objective Exam Vital Signs Date Time Temp Pulse Resp B/P (MAP) Pulse Ox O2 Delivery O2 Flow Rate FiO2 02/03/19 08:00 35.6 83 18 162/67 (98) 98 Nasal Cannula 2.00 02/03/19 08:00 98 Room Air 02/03/19 07:51 94 Room Air 02/03/19 04:00 36.0 67 17 125/70 (88) 98 Nasal Cannula 2.00 02/03/19 00:30 36.2 63 17 107/66 (80) 97 Nasal Cannula 2.00 02/02/19 20:20 94 Room Air 02/02/19 20:15 Room Air 02/02/19 19:54 37.3 70 18 113/57 (75) 99 Nasal Cannula 2.00 02/02/19 16:18 37.1 75 16 100/52 (68) 91 Nasal Cannula 2.00 02/02/19 14:00 37.1 73 16 135/80 (98) 94 Room Air 02/02/19 13:56 98 Nasal Cannula 3.00 I & O 02/03/19 07:00 Intake Total 5250 ml Output Total 3600 ml Balance 1650 ml Capillary Refill : Less Than 3 Seconds General Appearance: No Apparent Distress Extremity: Normal Capillary Refill, Normal Inspection, Normal Range of Motion, Non Tender Neurologic/Psychiatric: Alert, Oriented x3, No Motor/Sensory Deficits, Normal Mood/Affect Skin: Normal Color, Warm/Dry (dressing left knee CDI) Results Lab Laboratory Tests 02/03/19 04:25: White Blood Count 8.1, Red Blood Count 3.19L, Hemoglobin 9.1L, Hematocrit 29L, Mean Corpuscular Volume 92, Mean Corpuscular Hemoglobin 29, Mean Corpuscular Hemoglobin Concent 31L, Red Cell Distribution Width 13.5, Platelet Count 192, Mean Platelet Volume 9.7, Sodium Level 140, Potassium Level 4.2, Chloride Level 108H, Carbon Dioxide Level 23, Anion Gap 9, Blood Urea Nitrogen 12, Creatinine 1.03, Estimat Glomerular Filtration Rate 53, BUN/Creatinine Ratio 12, Glucose Level 140H, Calcium Level 7.9L Assessment/Plan Assessment/Plan Assess & Plan/Chief Complaint A: s/p left TKA P: Continue current treatment, plan to DC to home with daily home healthcare physical therapy tomorrow. Clinical Quality Measures DVT/VTE Risk/Contraindication: Risk Factor Score Per Nursin RFS Level Per Nursing on Admit: 4+=Very High DAVID CID APRN Feb 03, 2019 12:25 POS
--- NOTE | 2019-02-03 13:30 | Occupational Therapy Eval ---
OT Evaluation-General/PLF Medical Diagnosis Admission Date Feb 02, 2019 at 05:45 Medical Diagnosis: S/P L TKA Onset Date: Feb 02, 2019 Therapy Diagnosis Therapy Diagnosis: Decreased functional mobility and ADL function Height/Weight Height (Feet): 5 Height (Inches): 8.00 Weight (Pounds): 213 Weight (Ounces): 0.0 Precautions Precautions/Isolations: Fall Prevention, Standard Precautions Weight Bear Status Weight Bearing Restriction: Full Weight Bearing Location Restriction: JAMEL FEET Referral Physician: Isaias Smith Referral Reason: Activity Tolerance, Self Care, Evaluation/Treatment, Strengthening/ROM Medical History Additional Medical History L TKA Current History chronic edema, high cholesterol, HTN, arthritis, DM, hypothyroidism, bilateral PE's, anxiety Reviewed History: Yes Social History Home: Single Level Current Living Status: Spouse Entry Into Home: Ramp Steps Into Home: 2 (into front door with ramp into side door) ADL-Prior Level of Function SCALE: Activities may be completed with or without assistive devices. 4-Evrwhzrsul-swqjgnf completes the activity by him/herself with no assistance from a helper. 5-Set-up or Clean-up Assistance-helper sets up or cleans up; patient completes activity. [place] assists only prior to or following the activity. 4-Supervision or Touching Assistance-helper provides verbal cues and/or touching/steadying and/or contact guard assistance as patient completes activity. Assistance may be provided throughout the activity or intermittently. 3-Partial/Moderate Assistance-helper does LESS THAN HALF the effort. [place] lifts, holds or supports trunk or limbs, but provides less than half the effort. 2-Substantial/Maximal Assistance-helper does MORE THAN HALF the effort. [place] lifts or holds trunk or limbs and provides more than half the effort. 3-Tqglrgxnh-xotnxv does ALL the effort. Patient does none of the effort to complete the activity. Or, the assistance of 2 or more helpers is required for the patient to complete the activity. If activity was not attempted, code reason: 7-Patient Refused. 9-Not Applicable-not attempted and the patient did not perform the activity before the current illness, exacerbation or injury. 10-Not Attempted due to Environmental Limitations-(lack of equipment, weather restraints, etc.). 88-Not Attempted due to Medical Conditions or Safety Concerns. 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 Pt's mo ther living with niece until pt able to take care of mother. Occupation: retired, caregiver (see above) Drive Self: No OT Current Status Subjective Pt seen in recliner chair, present. Pt states no pain and states she has not experienced pain post-operation. Pt agreeable to OT evaluation. Mental Status/Objective Patient Orientation: Person, Place, Situation, Normal For Age Attachments: IV Current Glasses/Contacts: Yes Hearing Aids: No Dentures/Partials: No Hand Dominance: Right Upper Extremity ROM WFL BUE Upper Extremity Coordination WFL BUE Upper Extremity Sensation WFL BUE Upper Extremity Strength WFL BUE 4+/5 bilaterally ADL-Treatment Eating (QC): 6 Oral Hygiene (QC): 7 Shower/Bathe Self (QC): 7 Upper Body Dressing (QC): 7 Lower Body Dressing (QC): 6 On/Off Footwear (QC): 6 Toileting Hygiene (QC): 6 Toilet Transfer (QC): 6 Other Treatments Pt denies need for bathroom, states she was able to go to bathroom with FWW with no difficulties getting pants on/ off, pt able to don/ doff sock in recliner chair demonstrating abilities to thread clothing on/ off foot. Pt denies out of chair activities as she just returned from bathroom. Pt states present throughout day, both retired. Pt states she doesn't believe she will have any difficulties with ADLs at home, pt and OT address different environmental aspects of home, agree grab bars would be beneficial in long run. Pt educated on benefits of movement throughout day. Pt left in recliner chair with present, call light in reach, all needs met. Education OT Patient Education: Correct positioning, Purpose of tx/functional activities, Safety issues Teaching Recipient: Patient, Significant Other Teaching Methods: Demonstration, Discussion Response to Teaching: Verbalize Understanding, Return Demonstration OT Insole Cementer Goals Insole Cementer Goals Time Frame: Feb 03, 2019 Eating (QC): 6 Oral Hygiene (QC): 7 Toileting Hygiene (QC): 6 Shower/Bathe Self (QC): 7 Upper Body Dressing (QC): 7 Lower Body Dressing (QC): 6 On/Off Footwear (QC): 6 1=Demonstrate adherence to instructed precautions during ADL tasks. 2=Patient will verbalize/demonstrate understanding of assistive devices/modifications for ADL. 3=Patient will improve strength/tolerance for activity to enable patient to perform ADL's. OT Education/Plan Problem List/Assessment Assessment: No Skilled OT Needs ID'd Discharge Recommendations Plan/Recommendations: Discharge/Goals Met Equpiment Recommendations-D/C: Rails on Tub/Shower Treatment Plan/Plan of Care Treatment,Training & Education: Yes Patient would benefit from OT for education, treatment and training to promote i ndependence in ADL's, mobility, safety and/or upper extremity function for ADL's. Plan of Care: OTHER (eval only) Treatment Duration: Feb 03, 2019 Frequency: 1 time per week (eval only) Rehab Potential: Good Time/GCodes Start Time: 11:30 Stop Time: 11:41 Total Time Billed (hr/min): 11 Billed Treatment Time ANSELMO Medina (11) MICKIE NÚÑEZ OTR Feb 03, 2019 13:30 POS
--- NOTE | 2019-02-03 13:36 | Physical Therapy Daily Note ---
PT Daily Note-Current Subjective Patient agrees to PT at this time. Reports she is not having any pain in her knee, but some discomfort in thigh which she has been massaging. Reports she has used CPM twice today. Pain Numeric Pain Scale: 0-No Pain Location: No Pain Reported Mental Status Patient Orientation: Person, Place, Time, Situation Attachments: SCD's, Polar Pack, IV Transfers SCALE: Activities may be completed with or without assistive devices. 0-Ipmdbuvwhc-llklgpc completes the activity by him/herself with no assistance from a helper. 5-Set-up or Clean-up Assistance-helper sets up or cleans up; patient completes activity. [place] assists only prior to or following the activity. 4-Supervision or Touching Assistance-helper provides verbal cues and/or touching/steadying and/or contact guard assistance as patient completes activity. Assistance may be provided throughout the activity or intermittently. 3-Partial/Moderate Assistance-helper does LESS THAN HALF the effort. [place] lifts, holds or supports trunk or limbs, but provides less than half the effort. 2-Substantial/Maximal Assistance-helper does MORE THAN HALF the effort. [place] lifts or holds trunk or limbs and provides more than half the effort. 4-Elikcckiu-ehmsja does ALL the effort. Patient does none of the effort to complete the activity. Or, the assistance of 2 or more helpers is required for the patient to complete the activity. If activity was not attempted, code reason: 7-Patient Refused. 9-Not Applicable-not attempted and the patient did not perform the activity before the current illness, exacerbation or injury. 10-Not Attempted due to Environmental Limitations-(lack of equipment, weather restraints, etc.). 88-Not Attempted due to Medical Conditions or Safety Concerns. Roll Left & Right (QC): 6 Sit to Lying (QC): 6 Lying to Sitting/Side of Bed(Q: 6 Sit to Stand (QC): 5 Weight Bearing Right Lower Extremity: Right Full Weight Bearing Left Lower Extremity: Left Weight Bearing/Tolerated Gait Training Does the Patient Walk?: Yes Distance: 150' Walk 10 feet (QC): 5 Walk 50 ft with 2 Turns(QC): 5 Walk 150 ft (QC): 5 Gait Assistive Device: FWW Antalgic gait, toe walking, hip hike. Exercises Supine Ex: Heel Slides Supine Reps: 10 Assessment Patient supine in bed with polar pack and CPM on prior to tx. Performed bed mobility independently and able to stand without assistance. Patient performed toilet transfer without assistance. Ambulated 150' with antalgic gait with FWW without assistance. Patient returned to bed with polar pack on and HOB elevated for lunch. PT Glass Inspector Goals Retirement Goals PT Glass Inspector Goals Time Frame: Feb 10, 2019 Roll Left & Right (QC): 6 Sit to Lying (QC): 6 Lying-Sitting on Side/Bed(QC): 6 Sit to Stand (QC): 6 Chair/Mrw-vf-Ksmic Xfer(QC): 6 Toilet Transfer (QC): 6 Car Transfer (QC): 88 Does the Patient Walk: Yes Walk 10 feet (QC): 6 Walk 50ft with 2 Turns (QC): 6 Walk 150 ft (QC): 6 Walking 10ft on Uneven Surface: 88 1 Step (curb) (QC): 4 4 Steps (QC): 4 12 Steps (QC): 88 Picking up an Object (QC): 88 Does the Pt use WC or Scooter?: No Type: Manual Type: Manual PT Plan Treatment/Plan Treatment Plan: Continue Plan of Care Treatment Plan: Bed Mobility, Education, Functional Activity Ervin, Functional Strength, Gait, Safety, Therapeutic Exercise, Transfers Treatment Duration: Feb 10, 2019 Frequency: 11 times per week Estimated Hrs Per Day: .25 hour per day Patient and/or Family Agrees t: Yes Time/GCodes Time In: 1255 Time Out: 1312 Total Billed Treatment Time: 17 Total Billed Treatment 1 visit FA 17min ADRIANA SANDOVAL RACQUET MAKER Feb 03, 2019 13:36 POS
--- NOTE | 2019-02-03 14:08 | OPERATIVE REPORT ---
DATE OF SERVICE: 02/02/2019 PREOPERATIVE DIAGNOSIS: Primary osteoarthritis, left knee. POSTOPERATIVE DIAGNOSIS: Primary osteoarthritis, left knee. PROCEDURE: Left total knee arthroplasty. SURGEON: Joseph Ortiz DO ENGINEERING MECHANIC: LAURA Castillo SURGICAL RESTAURANT EXPEDITOR DUTIES: Isaias Smith, surgical instruments inspector was utilized throughout the entire procedure for patient positioning, soft tissue retraction, assistance in placement of total knee implants, wound closure, dressing application and the patient transfer. ANESTHESIA: General with femoral and genicular nerve block. ESTIMATED BLOOD LOSS: 2 mL. COMPLICATIONS: None. OPERATIVE TIME: Please see anesthesia report. INDICATIONS AND FINDINGS: The patient is a 68-year-old female seen with chief complaint of progressive left knee pain, nonresponsive to conservative treatment. The patient was taken to surgery where total knee arthroplasty was performed on the left without complication utilizing the Biomet Digital Luxuryguard total knee system with a press fit 62.5 mm femoral component, a 75 mm cemented fixed I-beam tibial component, a 34 mm three prong cemented all polyethylene standard patellar component with a 12 mm anterior stabilized tibial bearing implant. Palacos bone cement was utilized. PROCEDURE IN DETAIL: The patient was seen by anesthesia preoperatively and under ultrasound guidance, a femoral and genicular nerve block was performed on the left to decrease postoperative pain and decrease amount of medication required during the surgical procedure. The patient was transported to the operating room where general inhalation anesthetic was administered. A well-padded pneumatic tourniquet was placed about the upper aspect of left thigh. A ChloraPrep and sterile drape of the left lower extremity was performed. The left leg was elevated, exsanguinated and the tourniquet was inflated to 300 mmHg pressure. An anterior longitudinal midline incision was then made. Incision was deepened through a medial parapatellar incision. Patella was subluxed laterally. Osteophytes from the distal femur were removed with a bone rongeur. A commercial helicopter pilot hole was then developed in the distal femur and intramedullary maribel was inserted utilizing a 5 degree valgus cutting angle, a distal femoral cutting guide was assembled and distal femoral osteotomy was completed. The distal femur was sized to a 62.5 mm femoral component, a 4-way cutting block was assembled. Anterior, posterior and chamfer cuts of the distal femur were made. The tibia was subluxed anteriorly. Remnants of the medial and lateral menisci as well as the anterior cruciate ligament were excised. A commercial helicopter pilot hole was then drilled in the proximal tibia. An intramedullary maribel was inserted measuring off the exposed bone of the proximal and medial tibia. A proximal tibial cutting guide was assembled and a proximal tibial osteotomy was completed. Additional subperiosteal dissection was performed over the proximal medial tibia with osteophytes removed from the medial tibial plateau. The knee could be fully extended with a 10 mm gap sizer. Osteophytes from the rim of the patella were removed with a bone rongeur. The posterior aspect of the patella was resected through a cutting guide and drilled through the drill guide. Provisional components were inserted. The knee was cycled through a range of motion. Rotation of the tibial component was noted and marked on the proximal tibia. The proximal tibia was then broached to accept the I-beam stem portion of the implant. The bony surfaces were irrigated extensively with normal saline solution. Palacos bone cement was mixed. This was then pressurized in the proximal tibia and the tibial component was cemented in place. The femoral component was press fit into place. The patellar component was cemented in place and held with a clamp. Excess of cement was removed. The tourniquet was released. Hemostasis was obtained with electrocautery. The knee was cycled through a range of motion. The knee was found to be stable in mid range flexion and full flexion with full extension obtained with a 12 mm spacer. The provisional spacer was removed and anterior stabilized 12 mm spacer was inserted and locked anteriorly with a locking bar. The knee was placed in 90 degrees of flexion. The medial retinaculum was closed with multiple interrupted gucwoe-kw-wiobk sutures of #1 Vicryl reinforced with a running suture of #1 Stratafix. The subcutaneous tissues were closed with 0 and 2-0 Vicryl suture. The skin was closed with stainless steel tracey and Adaptic Neosporin bulky dressing was placed about the left knee. The patient was awakened and was transported to postop recovery with anesthesia personnel present in satisfactory condition. Job ID: [id number] DocumentID: [id number] Dictated Date: 02/03/2019 10:23:26 Home Worker Date: 02/03/2019 14:06:55 Dictated By: JOSEPH ORTIZ DO
[2019-02-03] MEDS: HYDROcodone/APAP 10 MG/325 MG (LORTAB) TAB PO PRN ×2 (14:15→21:04)
[2019-02-03] MEDS: BACLOFEN 10 MG (LIORESAL) TAB PO PRN ×2 (14:15→21:03)
[2019-02-03 15:59] VITALS: BP 148/72
[2019-02-03] MEDS: KCL 20 MEQ TAB (K-DUR) PO SCH (17:25)
[2019-02-03 20:07] VITALS: BP 148/69
[2019-02-03] MEDS: SENNA W/DOCUSATE (SENOKOT S) TABLET PO SCH (21:03)
[2019-02-03] MEDS: MONTELUKAST 10 MG (SINGULAIR) TAB PO SCH (21:03)
[2019-02-03] MEDS: busPIRone 5 MG (BUSPAR) TAB PO SCH (21:03)
[2019-02-04 00:20] VITALS: BP 124/57
[2019-02-04] MEDS: HYDROcodone/APAP 10 MG/325 MG (LORTAB) TAB PO PRN ×3 (02:39→09:18)
[2019-02-04 04:40] VITALS: BP 138/67
[2019-02-04 06:06] LABS: HEMOGLOBIN 8.9 G/DL (11.5-16.0); MEAN PLATELET VOLUME 9.8 FL (7.4-10.4); RED CELL DISTRIBUTION WIDTH 13.6 % (10.0-14.5); WHITE BLOOD COUNT 7.9 10^3/uL (4.3-11.0)
[2019-02-04] MEDS: metFORMIN 500 MG (GLUCOPHAGE) TAB PO SCH (06:20)
[2019-02-04] MEDS: GABAPENTIN 100 MG (NEURONTIN) CAP PO SCH (06:20)
[2019-02-04] MEDS: ACETAMINOPHEN 500 MG TAB (TYLENOL) PO SCH (06:20)
[2019-02-04] MEDS: LEVOTHYROXINE 88 MCG (LEVOTHORID) TAB PO SCH (06:20)
[2019-02-04] MEDS: ENOXAPARIN 40 MG/0.4 ML (LOVENOX) SYR SC SCH (06:21)
[2019-02-04] MEDS: BACLOFEN 10 MG (LIORESAL) TAB PO PRN (06:28)
--- NOTE | 2019-02-04 06:30 | D/C HH Face to Face Order ---
D/C Face to Face Orders Reconcile Patient Problems Problems Reviewed?: Yes Instructions for Patient Via [employer], Patient Instructions/FollowUp: f/u [address] Yeh's TKA DC instructions Continue CPM 6 hrs per day, advance as tolerated continue polar care unit daily island dressing changes if wound is draining Continue KATIE varghese Walker to ambulate Physician to follow Patient: Ruba Discharge Diet for Home: No Restrictions Patient Problems: primary OA left knee S/P left TKA Goals for Patient: improvement with ADLs Patient Data-Allergies,Ht & Wt Patient Allergies: Coded Allergies: Penicillins (Unverified Allergy, Severe, ANAPHYLAXIS, 01/26/19) Height (Feet): 5 Height (Inches): 8.00 Weight (Pounds): 213 Weight (Ounces): 0.0 Home Health Need/Face to Face Date of Face to Face: Feb 04, 2019 Clinical Findings: Muscle weakness, Pain with ambulation, Unsteady gait I have seen Pt ovwd-ns-bcty: Yes Discharged To: Home Diagnosis/Conditions: primary OA left knee S/P left TKA Patient is Homebound due to: Muscle weakness, Pain w/ambulation Homebound Status Due to the above stated illness, injury or surgical procedure (medical condition or diagnosis) and associated clinical findings, the patient is homebound because of his/her inability to leave home except with aid of a supportive device and/or person AND leaving the home requires a considerable and taxing effort or is medically contraindicated. Pt req the following assistanc: Walker Home Health Nursing Orders Home Health Services Order: Physical Therapy-Evaluate & Treat Physical therapy 5x/week x 2 weeks to treat gait and knee ROM Nursing to remove tracey and apply steri strips on 02/11/19 Home Health Infusion Therapy Line Start Date: Feb 02, 2019 Therapy Orders Therapy Orders: Physical Therapy Therapy Specific Orders: Gait training, Increase strength/endurance, Restore ROM Certify Stmt I certify that this patient is under my care and that I, a nurse practitioner or a physician; a machine assistant working with me, had a face to face encounter that - meets the physician face to face encounter requirements with this patient as dated. DAVID CID APRN Feb 04, 2019 06:30 POS
--- NOTE | 2019-02-04 06:33 | Discharge Summary ---
Diagnosis/Chief Complaint Date of Admission Feb 02, 2019 at 05:45 Date of Discharge 02/04/2019 Discharge Date: Feb 04, 2019 Admission Diagnosis Admission Diagnosis Primary OA Left Knee Discharge Diagnosis Primary OA left knee S/P left TKA Acute blood loss anemia Reason Hospital Visit Left TKA Discharge Summary Procedures: Left Total Knee Arthroplasty Consultations Internal medicine for medical management Discharge Physical Examination Allergies: Coded Allergies: Penicillins (Unverified Allergy, Severe, ANAPHYLAXIS, 01/26/19) Vitals & I&Os Vital Signs Date Time Temp Pulse Resp B/P (MAP) Pulse Ox O2 Delivery O2 Flow Rate FiO2 02/04/19 04:40 36.5 76 20 138/67 (90) 97 Room Air 02/03/19 12:00 2.00 General Appearance: Alert, Oriented X3 HEENT: PERRLA Respiratory: Clear to Auscultation Cardiovascular: Regular Rate Abdominal: Soft, No Tenderness Extremities: No Clubbing, No Cyanosis Skin: No Rashes, No Breakdown Neuro: Strength at 5/5 X4 Ext, Normal Tone, Sensation Intact Psych/Mental Status: Mental Status NL Hospital Course Was the Problem List Reviewed?: Yes Overall the hospital course was uneventful. On the day of admission she underwent a left TKA. She was hospitalized for pain control, DVT prophylaxis, and IV antibiotic prophylaxis. She progressed well and was discharged to home on POD 2 with home healthcare. Pending Labs Laboratory Tests 02/04/19 05:50: White Blood Count 7.9, Red Blood Count 3.10, Hemoglobin 8.9, Hematocrit 28, Mean Corpuscular Volume 90, Mean Corpuscular Hemoglobin 29, Mean Corpuscular Hemoglobin Concent 32, Red Cell Distribution Width 13.6, Platelet Count 184, Mean Platelet Volume 9.8, Sodium Level [Pending], Potassium Level [Pending], Chloride Level [Pending], Carbon Dioxide Level [Pending], Anion Gap [Pending], Blood Urea Nitrogen [Pending], Creatinine [Pending], BUN/Creatinine Ratio [Pending], Glucose Level [Pending], Calcium Level [Pending] Discharge Condition at discharge good Instructions to patient/family Please see electronic discharge instructions given to patient. Discharge Medications Reviewed and agree with Discharge Medication list on patient's Discharge Instruction sheet Clinical Quality Measures DVT/VTE Risk/Contraindication: Risk Factor Score Per Nursin RFS Level Per Nursing on Admit: 4+=Very High PALAK,DAVID E MACHINIST/MACHINE BUILDER Feb 04, 2019 06:33 POS
[2019-02-04] MEDS ORDERED: SENN-20 PO (06:37)
[2019-02-04] MEDS ORDERED: HYDR-3820 PO (06:37)
[2019-02-04 06:51] LABS: CALCIUM 8.5 MG/DL (8.5-10.1); CREATININE SERUM 0.99 MG/DL (0.60-1.30); POTASSIUM 3.8 MMOL/L (3.6-5.0)
[2019-02-04] MEDS: RT-ADVAIR HFA 115/21 MCG PER PUFF IH SCH (07:40)
[2019-02-04 08:00] VITALS: BP 148/71
[2019-02-04] MEDS: PANTOPRAZOLE 40 MG (PROTONIX) TAB PO SCH (09:17)
[2019-02-04] MEDS: LORATADINE (CLARITIN) 10 MG TAB PO SCH (09:17)
[2019-02-04] MEDS: ASPIRIN E.C. 81 MG (ECOTRIN) TAB PO SCH (09:17)
[2019-02-04] MEDS: LOSARTAN 100 MG (COZAAR) TABLET PO SCH (09:17)
[2019-02-04] MEDS: FUROSEMIDE 40 MG (LASIX) TAB PO SCH (09:17)
[2019-02-04] MEDS: FOLIC ACID 1 MG TAB PO SCH (09:17)
--- NOTE | 2019-02-04 09:23 | NUR ---
PRIOR TO A.M. MEDICATIONS PULSE WAS 82 B/P WAS 148/71
--- NOTE | 2019-02-04 09:30 | NUR ---
DISCHARGE PLANNING: Patient is discharged today to home with Home Health Care. First choice was [facility] however, they are filled in their schedule for physical therapy for the next two weeks. I have given the patient her other options and she chose [facility]. Referral faxed and confirmed. No other needs at this time.
--- NOTE | 2019-02-04 09:47 | Progress Note - Hospitalist ---
Subjective HPI/CC On Admission Date Seen by Provider: Feb 04, 2019 Time Seen by Provider: 09:15 Chief complaint: Left TKA by Dr. Yeh HPI: This is a 68yoWF clinic Pt of mine with diabetes, hypertension and hypothyroidism, who presents after an uncomplicated Left knee replacement by Dr. Yeh. She has. a history of DVT with PE so she will be placed on Lovenox per protocol and will require 4-6 weeks of anticoagulation afterwards per Dr. Pugh. Pt doing much better Will DC Lovenox and start on Eliquis and she will need six days of 2.5 mg twice daily Hgb 9.1 Doing very well and has not required narcotics Subjective/Events-last exam Pt doing very well. No narcotics used. Eliquis if 2.5 Mg BID will be maintained for a total of 6 weeks, coupons given and everything was within normal limits at discharge. No BM yet but she will use her medication she has at home when she is discharged. Review of Systems General: Fatigue Musculoskeletal: leg pain Objective Exam Vital Signs Vital Signs Date Time Temp Pulse Resp B/P (MAP) Pulse Ox O2 Delivery O2 Flow Rate FiO2 02/04/19 08:00 36.6 82 18 148/71 (96) 99 Room Air 02/03/19 12:00 2.00 Capillary Refill : Less Than 3 Seconds General Appearance: No Apparent Distress, WD/WN Respiratory: Lungs Clear Cardiovascular: Regular Rate, Rhythm Neurologic/Psychiatric: Alert, Oriented x3, No Motor/Sensory Deficits, Normal Mood/Affect Results/Procedures Lab Laboratory Tests 02/04/19 05:50 Patient resulted labs reviewed. Assessment/Plan Assessment and Plan Assess & Plan/Chief Complaint Assessment: Left knee replacement POD # 2 h/o PE remotely needs 6 weeks OAC DM Hypothyroidism HTN HLP Plan: Monitor closely Monitor labs OAC x 6 weeks Diagnosis/Problems Diagnosis/Problems (1) Status post left knee replacement (2) Diabetes mellitus (3) Hypothyroidism (4) Hypertension (5) Osteoarthritis of left knee Clinical Quality Measures DVT/VTE Risk/Contraindication: Risk Factor Score Per Nursin RFS Level Per Nursing on Admit: 4+=Very High DONA GONZALEZ DO Feb 04, 2019 09:47 POS
--- NOTE | 2019-02-04 09:54 | Physical Therapy Daily Note ---
PT Daily Note-Current Subjective Patient agrees to PT at this time. Reports no pain in knee. States she is going home today. Pain Numeric Pain Scale: 0-No Pain Location: No Pain Reported Mental Status Patient Orientation: Person, Place, Time, Situation Attachments: SCD's, Polar Pack Transfers SCALE: Activities may be completed with or without assistive devices. 2-Iwajvkoogq-ejujbjj completes the activity by him/herself with no assistance fr om a helper. 5-Set-up or Clean-up Assistance-helper sets up or cleans up; patient completes activity. [place] assists only prior to or following the activity. 4-Supervision or Touching Assistance-helper provides verbal cues and/or touching/steadying and/or contact guard assistance as patient completes activity. Assistance may be provided throughout the activity or intermittently. 3-Partial/Moderate Assistance-helper does LESS THAN HALF the effort. [place] lifts, holds or supports trunk or limbs, but provides less than half the effort. 2-Substantial/Maximal Assistance-helper does MORE THAN HALF the effort. [place] lifts or holds trunk or limbs and provides more than half the effort. 6-Imbfbwwgh-uvnnpm does ALL the effort. Patient does none of the effort to complete the activity. Or, the assistance of 2 or more helpers is required for the patient to complete the activity. If activity was not attempted, code reason: 7-Patient Refused. 9-Not Applicable-not attempted and the patient did not perform the activity before the current illness, exacerbation or injury. 10-Not Attempted due to Environmental Limitations-(lack of equipment, weather restraints, etc.). 88-Not Attempted due to Medical Conditions or Safety Concerns. Roll Left & Right (QC): 6 Sit to Lying (QC): 6 Lying to Sitting/Side of Bed(Q: 6 Sit to Stand (QC): 6 Weight Bearing Right Lower Extremity: Right Full Weight Bearing Left Lower Extremity: Left Weight Bearing/Tolerated Gait Training Does the Patient Walk?: Yes Distance: 300' Walk 10 feet (QC): 6 Walk 50 ft with 2 Turns(QC): 6 Walk 150 ft (QC): 6 Gait Assistive Device: FWW Slightly antalgic gait, reciprocal pattern, slow pace Exercises Supine Ex: Ankle pumps, Heel Slides, Straight leg raise Supine Reps: 10 Seated Therapy Exercises: Long arc quads, Hip flexion Seated Reps: 10 Assessment Patient able to perform all supine and seated exercises without assistance, demonstrating fair strength in LE. Patient able to perform bed mobility and transfer without assistance. Patient ambulated 300' with FWW independently, demonstrating slightly antalgic gait and slow pace, but reciprocal pattern. Patient returned to bed with polar pack and CPM set to 80 deg flexion at conclusion of treatment. 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 Frame: Feb 10, 2019 Roll Left & Right (QC): 6 Sit to Lying (QC): 6 Lying-Sitting on Side/Bed(QC): 6 Sit to Stand (QC): 6 Chair/Vyr-gq-Bfbha Xfer(QC): 6 Toilet Transfer (QC): 6 Car Transfer (QC): 88 Does the Patient Walk: Yes Walk 10 feet (QC): 6 Walk 50ft with 2 Turns (QC): 6 Walk 150 ft (QC): 6 Walking 10ft on Uneven Surface: 88 1 Step (curb) (QC): 4 4 Steps (QC): 4 12 Steps (QC): 88 Picking up an Object (QC): 88 Does the Pt use WC or Scooter?: No Type: Manual Type: Manual PT Plan Treatment/Plan Treatment Plan: Continue Plan of Care, Discontinue PT Treatment Plan: Bed Mobility, Education, Functional Activity Ervin, Functional Strength, Gait, Safety, Therapeutic Exercise, Transfers Treatment Duration: Feb 10, 2019 Frequency: 11 times per week Estimated Hrs Per Day: .25 hour per day Patient and/or Family Agrees t: Yes Time/GCodes Time In: 811 Time Out: 834 Total Billed Treatment Time: 23 Total Billed Treatment 1 visit EX 10min FA 13min HOMA MANCIA PT Feb 04, 2019 09:54 POS
[2019-02-04] MEDS ORDERED: APIX2.5T PO (09:59)
== END 2019-02-04 10:45 | disposition home health service (06) | DRG 470 ==
LOC: 4TH 02-02 05:45 → SURG 02-02 05:46 → 4TH 02-02 11:20
PROVIDERS: ADMIT Orthopaedic Surgery; ATTEND Orthopaedic Surgery
PROC: 0SRD0J9 Replacement of Left Knee Joint with Synthetic Substitute, Cemented, Open Approach (ICD-10-PCS; principal; 2019-02-02 08:07)
DX: M17.12 Unilateral primary osteoarthritis, left knee (principal); D62 Acute posthemorrhagic anemia; E11.9 Type 2 diabetes mellitus without complications; I10 Essential (primary) hypertension; E03.9 Hypothyroidism, unspecified; E78.00 Pure hypercholesterolemia, unspecified; K21.9 Gastro-esophageal reflux disease without esophagitis; F41.9 Anxiety disorder, unspecified; E78.5 Hyperlipidemia, unspecified; Z79.84 Long term (current) use of oral hypoglycemic drugs; Z86.718 Personal history of other venous thrombosis and embolism; Z86.711 Personal history of pulmonary embolism; Z88.0 Allergy status to penicillin
CPT/HCPCS: 36415; 73560; 80048; 82962; 85027; 86850; 86900; 86901; 94640; 94664

== ENCOUNTER 2019-01-26 09:04 | Outpatient (CLI) | payer MEDICARE, OTHER ==
[~2019-01-26] VITALS: Ht 172 cm; Wt 96.2 kg
[2019-01-26 09:38] VITALS: BP 131/77
[2019-01-26 10:04] LABS: BILIRUBIN,URINE NEGATIVE (NEGATIVE); CLARITY,URINE CLEAR; COLOR,URINE YELLOW; GLUCOSE, URINE (UA) NEGATIVE (NEGATIVE); KETONES,URINE NEGATIVE (NEGATIVE); LEUKOCYTE ESTERASE ,URINE 2+ (NEGATIVE); NITRITE,URINE POSITIVE (NEGATIVE); PROTEIN,URINE NEGATIVE (NEGATIVE)
[2019-01-26 10:04] LABS: BASOPHILS % (AUTO) 0 % (0-10); EOSINOPHILS # (AUTO) 0.2 10^3/uL (0.0-0.3); EOSINOPHILS % (AUTO) 4 % (0-10); HEMATOCRIT 38 % (35-52); HEMOGLOBIN 12.1 G/DL (11.5-16.0); LYMPHOCYTES # (AUTO) 2.7 X 10^3 (1.0-4.0); LYMPHOCYTES % (AUTO) 48 % (12-44); MEAN CORPUSCULAR HEMOGLOBIN 29 PG (25-34); MEAN CORPUSCULAR HGB CONC 32 G/DL (32-36); MEAN CORPUSCULAR VOLUME 89 FL (80-99); MEAN PLATELET VOLUME 9.8 FL (7.4-10.4); MONOCYTES # (AUTO) 0.5 X 10^3 (0.0-1.0); MONOCYTES % (AUTO) 9 % (0-12); NEUTROPHILS # (AUTO) 2.1 X 10^3 (1.8-7.8); NEUTROPHILS % (AUTO) 38 % (42-75); PLATELET COUNT 252 10^3/uL (130-400); RED CELL DISTRIBUTION WIDTH 13.6 % (10.0-14.5); WHITE BLOOD COUNT 5.5 10^3/uL (4.3-11.0)
[2019-01-26 10:14] LABS: BACTERIA,URINE MODERATE /HPF
[2019-01-26 10:17] LABS: PROTHROMBIN TIME PATIENT 13.5 SEC (12.2-14.7)
[2019-01-26 10:25] LABS: CALCIUM 9.4 MG/DL (8.5-10.1); CREATININE SERUM 1.05 MG/DL (0.60-1.30); POTASSIUM 4.1 MMOL/L (3.6-5.0)
--- NOTE | 2019-01-26 11:01 | Diagnostic Imaging Report ---
INDICATION: Preoperative evaluation for total left knee arthroplasty. COMPARISON: 04/24/2017. FINDINGS: Frontal and lateral views of the chest demonstrate normal heart size and pulmonary vascularity. The lungs are clear. There are no signs of infiltrate, pleural effusions or pneumothoraces. The visualized osseous structures show no acute abnormalities. IMPRESSION: 1. No acute process. No signs of infiltrates, effusions or pneumothoraces. Dictated by: Dictated on workstation # [id number]
[2019-01-26] MEDS ORDERED: ASCO10006 PO (13:08)
[2019-01-26] MEDS ORDERED: CETI10TA17 PO (13:08)
[2019-01-26] MEDS ORDERED: FOLI0.8C PO (13:08)
[2019-01-26] MEDS ORDERED: OMG1KC PO (13:08)
[2019-01-26] MEDS ORDERED: MULT1TAB69 PO (13:08)
[2019-01-26] MEDS ORDERED: ASPI-983 PO (13:08)
[2019-01-26] MEDS ORDERED: LYSI500T PO (13:08)
[2019-01-26] MEDS ORDERED: FERR240T15 PO (13:08)
[2019-01-26] MEDS ORDERED: GARL10002 PO (13:08)
[2019-01-26] MEDS ORDERED: OLIV250C PO (13:08)
[2019-01-26] MEDS ORDERED: CRAN1CAP3 PO (13:08)
[2019-01-26] MEDS ORDERED: RT-ALBUINH INH (13:12)
[2019-01-26] MEDS ORDERED: MELO15TA39 PO (13:12)
[2019-01-26] MEDS ORDERED: OMEP40CA36 PO (13:12)
[2019-01-26] MEDS ORDERED: FURO40TA4 PO (13:12)
[2019-01-26] MEDS ORDERED: MONT10TA24 PO (13:12)
[2019-01-26] MEDS ORDERED: FLUT1DIS26 IH (13:12)
[2019-01-26] MEDS ORDERED: METF-397 PO (13:12)
[2019-01-26] MEDS ORDERED: SIMV40TA4 PO (13:12)
[2019-01-26] MEDS ORDERED: ALPR0.5T7 PO (13:12)
[2019-01-26] MEDS ORDERED: LOSA100T57 PO (13:13)
[2019-01-26] MEDS ORDERED: LEVO88TA54 PO (13:24)
[2019-01-26] MEDS ORDERED: TRAM50TA2 PO (13:25)
== END 2019-01-26 17:12 | disposition home or self-care (01) ==
LOC: PREOP 09:04
PROVIDERS: ATTEND Orthopaedic Surgery
DX: Z01.818 Encounter for other preprocedural examination (principal); Z01.812 Encounter for preprocedural laboratory examination; M17.12 Unilateral primary osteoarthritis, left knee
CPT/HCPCS: 36415; 71046; 80048; 81000; 85025; 85610; 86850; 86900; 86901; 87081; 87088

== ENCOUNTER 2019-04-19 10:35 | Outpatient (RCR) | payer MEDICARE, OTHER ==
[~2019-04-19 10:35] MED LIST changes: +ALPR0.5T7 PO; +APIX2.5T PO; +ASCO10006 PO; +ASPI-983 PO; +CRAN1CAP3 PO; +FERR240T15 PO; +FLUT1DIS26 IH; +FOLI0.8C PO; +GARL10002 PO; +HYDR-3820 PO; +LEVO88TA54 PO; +LOSA100T57 PO; +LYSI500T10 PO; +MELO15TA39 PO; +MONT10TA24 PO; +MULT1TAB69 PO; +OLIV250C PO; +OMEP40CA27 PO; +OMG1KC PO; +RT-ALBUINH INH; +SENN-20 PO; +SIMV40TA25 PO
== END 2019-05-05 14:37 | disposition home or self-care (01) ==
PROVIDERS: ATTEND Nurse Practitioner Family
DX: Z47.1 Aftercare following joint replacement surgery (principal); E11.9 Type 2 diabetes mellitus without complications; I10 Essential (primary) hypertension; K21.9 Gastro-esophageal reflux disease without esophagitis; Z96.652 Presence of left artificial knee joint

== ENCOUNTER → 2019-10-11 | Outpatient (CLI) | payer MEDICARE, OTHER ==
[~2019-10-11] MED LIST changes: +ACHYD1T PO; -HYDR-3820 PO; -MONT10TA24 PO; +MONT10TA26 PO; +MULT-567 PO; -MULT1TAB69 PO; -WARF5TAB PO; +WARF5TAB2 PO
--- NOTE | 2019-10-11 09:09 | Diagnostic Imaging Report ---
INDICATION: Routine screening. Comparison is made with prior mammogram from 10/09/2018 and 06/30/2017. 2-D and 3-D bilateral screening mammography was performed with CAD. Both breasts are heterogeneously dense, limiting the sensitivity of mammography. The parenchymal pattern is stable. No mass or malignant-appearing microcalcifications are seen. Axillae are unremarkable. IMPRESSION: BI-RADS Category 1 No mammographic features suspicious for malignancy are identified. ACR BI-RADS Category 1: Negative. Result letter will be mailed to the patient. Note: At least 10% of breast cancer is not imaged by mammography. Dictated by: Dictated on workstation # [id number]
== END ==
LOC: RAD 08:08
PROVIDERS: ATTEND Internal Medicine
DX: Z12.31 Encounter for screening mammogram for malignant neoplasm of breast (principal)
CPT/HCPCS: 77063; 77067

== ENCOUNTER → 2020-02-08 | Outpatient (CLI) | payer OTHER, MEDICARE ==
[~2020-02-08] MED LIST changes: +ALPR.25T PO; -ALPR0.254 PO; +ASCO100024 PO; -ASCO10006 PO; +ASPI-1238 PO; -ASPI-983 PO
== END ==
LOC: GIR 16:44
PROVIDERS: ATTEND Internal Medicine
DX: U07.1 COVID-19 (principal)
CPT/HCPCS: 87635

== ENCOUNTER → 2020-07-12 | Outpatient (CLI) | payer MEDICARE, OTHER ==
[~2020-07-12] MED LIST changes: +ESCI20TA39 PO; -ESCI20TA45 PO; -MONT10TA26 PO; +MONT10TA32 PO
== END ==
LOC: CARD 12:52
PROVIDERS: ATTEND Internal Medicine Cardiovascular Disease
DX: I35.8 Other nonrheumatic aortic valve disorders (principal); I10 Essential (primary) hypertension
CPT/HCPCS: 93306

== ENCOUNTER → 2020-08-21 | Outpatient (CLI) | payer MEDICARE, OTHER ==
[~2020-08-21] VITALS: Ht 172 cm; Wt 100.0 kg
[~2020-08-21] MED LIST changes: +CATHETER FLUSH 10 ML SYR IV PRN; +REGADENOSON 0.4 MG/5 ML SYR (LEXISCAN) IV ONE
[2020-08-21 09:19] VITALS: BP 137/74
--- NOTE | 2020-08-21 11:27 | Cardiology Stress Test Report ---
Stress Test Report Date of Procedure/Referring: Date of Procedure: Aug 21, 2020 PCP Alva Estrada MD Admitting Physician Snow Vidal DO Indications: CP Baseline Heart Rate: 64 Baseline Blood Pressure: Blood Pressure Systolic: 137 Blood Pressure Diastolic: 74 Baseline Vitals Vital Signs Date Time Temp Pulse Resp B/P (MAP) Pulse Ox O2 Delivery O2 Flow Rate FiO2 08/21/20 09:19 63 137/74 (95) 98 Baseline EKG: Baseline EKG: NSR Summary After explaining the procedure to the patient, she signed a consent and then brought to the stress nuclear laboratory. Patient received 0.4 mg Lexiscan for stress test, ECG, heart rate and blood pressure were monitored continuously. Resting and stress dose of radio tracer were injected, imaging was acquired and reviewed in short axis, horizontal long axis and vertical long axis views. TID: 1.04 SSS: 0 SDS: 0 EF: 54 1. Patient tolerated Lexiscan well 2. Breast attenuation with no significant ischemia or infarction on SPECT images 3. Normal left ventricular size, EF 54% ALVA ETSRADA MD Aug 21, 2020 11:27
== END ==
LOC: CARD 07:45
PROVIDERS: ATTEND Internal Medicine Cardiovascular Disease
DX: R07.9 Chest pain, unspecified (principal); I10 Essential (primary) hypertension
CPT/HCPCS: 78452; 93017; A9502

== ENCOUNTER → 2021-03-07 | Outpatient (CLI) | payer MEDICARE, OTHER ==
[~2021-03-07] MED LIST changes: -CATHETER FLUSH 10 ML SYR IV PRN; +MONT-40 PO; -MONT10TA32 PO; -OMEP40CA27 PO; +OMEP40CA6 PO; +POTA-179 PO; -POTA20TA15 PO; -REGADENOSON 0.4 MG/5 ML SYR (LEXISCAN) IV ONE
--- NOTE | 2021-03-07 15:38 | Diagnostic Imaging Report ---
INDICATION: Routine screening. COMPARISON: 10/11/2019 and 10/09/2018. TECHNIQUE: 2D and 3D bilateral screening mammography was performed with CAD. FINDINGS: Both breasts are heterogeneously dense, limiting the sensitivity of mammography. No mass or malignant-appearing microcalcifications are seen. The axillae are unremarkable. IMPRESSION: No mammographic features suspicious for malignancy are identified. ACR BI-RADS Category 1: Negative. Result letter will be mailed to the patient. Note: At least 10% of breast cancer is not imaged by mammography. Dictated by: Dictated on workstation # [id number]
== END ==
LOC: RAD 11:30
PROVIDERS: ATTEND Internal Medicine
DX: Z12.31 Encounter for screening mammogram for malignant neoplasm of breast (principal)
CPT/HCPCS: 77063; 77067

== ENCOUNTER → 2022-03-12 | Outpatient (CLI) | payer BC, MEDICARE, OTHER ==
--- NOTE | 2022-03-12 09:06 | Diagnostic Imaging Report ---
INDICATION: Postmenopausal state COMPARISON: 11/28/2008 FINDINGS: AP Spine L1-L4: [BMD (g/cm2): 1.106] [T-Score: -0.8] [Z-Score: -0.2] [BMD Previous: 1.065] [BMD % Change: 3.8]* LT Hip Neck: [BMD (g/cm2): 0.734] [T-Score: -2.2] [Z-Score: -1.2] LT Hip Total: [BMD (g/cm2):0.849] [T-Score:-1.3] [Z-Score: -0.5] [BMD Previous: 0.935] [BMD % Change: -9.2] RT Hip Neck: [BMD (g/cm2):0.936] [T-Score:-0.7] [Z-Score:0.3] RT Hip Total: [BMD (g/cm2):0.993] [T-score:-0.1] [Z-Score:0.6] [BMD Previous:0.910] [BMD % Change:9.1]* *Indicates significant change from prior examination based on 95% confidence level. World Health Organization criteria for BMD interpretation classify patients as Normal (T-score at or above -1.0), Osteopenic (T-score between -1.0 and -2.5) or Osteoporotic (T-score at or below -2.5). LIMITATIONS AND MODIFICATION: None. FRACTURE RISK (FRAX SCORE): The ten year probability of (%): Major Osteoporotic Fracture: [12.3] Hip Fracture: [2.6] IMPRESSION: 1. Osteopenia (Low bone mass). 2. There has been a statistically significant increase in BMD since prior exam, detailed above. 3. See below National Osteoporosis Foundation guidelines on when to potentially initiate pharmacologic therapy. Based on the National Osteoporosis Foundation Guidelines, pharmacologic treatment should be initiated in any of the following, unless clinical conditions suggest otherwise: * Any patient with prior fragility fracture of the hip or vertebrae. A spine fracture indicates 5X risk for subsequent spine fracture and 2X risk for subsequent hip fracture. * Osteoporosis (T-score <-2.5). * Postmenopausal women and men age 50 and older with low bone mass/osteopenia (T-score between -1.0 and -2.5) by DXA and 10-year major osteoporotic fracture greater than 20% or a 10-year probability of hip fracture greater than 3%. These fracture risks are supplied above in the FRAX score, if applicable. * Clinician judgement and/or patient preferences may indicate treatment for people with 10-year fracture probabilities above or below these levels. Dictated by: Dictated on workstation # [id number]
--- NOTE | 2022-03-12 14:23 | Diagnostic Imaging Report ---
Indication: Routine screening. Comparison is made with prior mammogram 03/07/2021 and 10/11/2019. 2-D and 3-D bilateral screening mammography was performed with CAD. CAD is utilized. The current study was also evaluated with a Computer Aided Detection (CAD) system. Both breasts are heterogeneously dense, limiting the sensitivity of mammography. The parenchymal pattern is stable. No mass or malignant appearing microcalcifications are seen. Axillae are unremarkable. IMPRESSION: BI-RADS Category 1 No mammographic features suspicious for malignancy are identified. ACR BI-RADS Category 1: Negative. Result letter will be mailed to the patient. Note: At least 10% of breast cancer is not imaged by mammography. Dictated by: Dictated on workstation # [id number]
== END ==
LOC: RAD 07:53
PROVIDERS: ATTEND Internal Medicine
DX: Z12.31 Encounter for screening mammogram for malignant neoplasm of breast (principal); M85.80 Other specified disorders of bone density and structure, unspecified site; Z78.0 Asymptomatic menopausal state
CPT/HCPCS: 77063; 77067; 77080

== ENCOUNTER 2022-09-23 18:27 | Emergency (ER) | payer OTHER, MEDICARE ==
[~2022-09-23 18:27] MED LIST changes: -LOSA100T57 PO; +LOSA100T58 PO
--- NOTE | 2022-09-23 18:41 | ED Upper Extremity ---
General Chief Complaint: Upper Extremity Stated Complaint: LEFT THUMB INJURY Nursing Triage Note: PT AMB TO FT WITH C/O L THUMB INJURY AFTER SHUTTING IT IN THE TRUCK DOOR AROUND 1800 Source: patient Exam Limitations: no limitations (BRITNI HOWARD) History of Present Illness Date Seen by Provider: Sep 23, 2022 Time Seen by Provider: 18:39 Initial Comments Patient is a 71-year-old female presents ED with left thumb injury. Around 20 minutes ago patient slammed her thumb in a car door. She states she has a small abrasion to the left palmar thumb and potentially injury to her nail. Bleeding around the nail. The nail appears to be intact. She denies of any specific pa in. Bleeding controlled. Bruising and swelling distally. She is not up-to-date on her tetanus. Denies any numbness and tingling, pain, nausea vomit, diarrhea fever, chills. (BRITNI HOWARD) Allergies and Home Medications Allergies Coded Allergies: Penicillins (Unverified Allergy, Severe, ANAPHYLAXIS, 01/26/19) Patient Home Medication List Home Medication List Reviewed: Yes (BRITNI HOWARD) Albuterol Sulfate (Ventolin Hfa) 1 Puff Puff, 2 PUFF INH Q4H PRN for SHORTNESS OF BREATH, (Reported) Entered as Reported by: BILL STEEN on 01/26/19 1312 Alprazolam (Alprazolam) 0.5 Mg Tablet, 0.5 MG PO BID PRN for ANXIETY, (Reported) Entered as Reported by: BILL STEEN on 01/26/19 1312 Apixaban (Eliquis) 2.5 Mg Tablet, 2.5 MG PO BID Prescribed by: HOLLIE LYNCH on 02/04/19 0959 Ascorbic Acid (Vitamin C) 1,000 Mg Tablet, 1,000 MG PO DAILY, (Reported) Entered as Reported by: BILL STEEN on 01/26/19 1308 Aspirin (Aspirin EC) 81 Mg Tablet.dr, 81 MG PO DAILY, (Reported) Entered as Reported by: BILL STEEN on 01/26/19 1308 Buspirone HCl (Buspirone HCl) 5 Mg Tablet, 5 MG PO HS, (Reported) Entered as Reported by: SHERRY JARQUIN on 01/27/15 0106 Cetirizine HCl (Cetirizine HCl) 10 Mg Tablet, 10 MG PO DAILY, (Reported) Entered as Reported by: BILL STEEN on 01/26/19 1308 Cranberry Conc/Ascorbic Acid (Cranberry 12,600 mg Softgel) 1 Each Capsule, 1 CAP PO BID, (Reported) Entered as Reported by: BILL STEEN on 01/26/19 1308 Escitalopram Oxalate (Escitalopram Oxalate) 20 Mg Tablet, 20 MG PO HS, (Reported) Entered as Reported by: SHERRY JARQUIN on 01/27/15 0102 Ferrous Gluconate (Iron) 240 Mg Tablet, 240 MG PO DAILY, (Reported) Entered as Reported by: BILL STEEN on 01/26/19 130 Fluticasone/Salmeterol (Advair 250-50 Diskus) 1 Each Blst.w.dev, 1 PUFF IH BID, (Reported) Entered as Reported by: BILL STEEN on 01/26/19 1312 Folic Acid (Folic Acid) 0.8 Mg Capsule, 0.8 MG PO DAILY, (Reported) Entered as Reported by: BILL STEEN on 01/26/19 1308 Furosemide (Furosemide) 40 Mg Tablet, 40 MG PO DAILY, (Reported) Entered as Reported by: BILL STEEN on 01/26/19 1312 Garlic (Garlic) 1,000 Mg Capsule, 1,000 MG PO DAILY, (Reported) Entered as Reported by: BILL STEEN on 01/26/19 1308 Hydrocodone Bit/Acetaminophen (HYDROcodone/APAP 10/325 TABLET) 1 Each Tablet, 1 EA PO Q4H PRN for PAIN-MODERATE (5-7) Prescribed by: DAVID CID on 02/04/19 0637 Levothyroxine Sodium (Levothyroxine Sodium) 88 Mcg Tablet, 88 MCG PO DAILY, (Reported) Entered as Reported by: BILL STEEN on 01/26/19 1324 Losartan Potassium (Losartan Potassium) 100 Mg Tablet, 100 MG PO DAILY, (Repo rted) Entered as Reported by: BILL STEEN on 01/26/19 1313 Lysine (l-Lysine) 500 Mg Tablet, 500 MG PO DAILY, (Reported) Entered as Reported by: BILL STEEN on 01/26/19 1308 Meloxicam (Meloxicam) 15 Mg Tablet, 15 MG PO DAILY, (Reported) Entered as Reported by: BILL STEEN on 01/26/19 131 Metformin HCl (Metformin HCl) 500 Mg Tablet, 500 MG PO BID, (Reported) Entered as Reported by: BILL STEEN on 01/26/19 131 Montelukast Sodium (Montelukast Sodium) 10 Mg Tablet, 10 MG PO HS, (Reported) Entered as Reported by: BILL STEEN on 01/26/19 131 Multivitamin (Multivitamins) 1 Each Tablet, 1 TAB PO DAILY, (Reported) Entered as Reported by: BILL STEEN on 01/26/19 130 [place] Cal[place] Extract ([place] Calvert Extract) 250 Mg Capsule, 250 MG PO DAILY, (Reported) Entered as Reported by: BILL STEEN on 01/26/19 130 [place] 3 Polyunsat Fatty Acids (Fish Oil 1,000 mg Capsule) 1,000 Mg Cap, 1,000 MG PO TID, (Reported) Entered as Reported by: BILL STEEN on 01/26/19 130 Omeprazole (Omeprazole) 40 Mg Capsule.dr, 40 MG PO DAILY, (Reported) Entered as Reported by: BILL STEEN on 01/26/19 131 Potassium Chloride (Potassium Chloride) 20 Meq Tab.er.prt, 20 MEQ PO HS, (Reported) Entered as Reported by: BILL STEEN on 01/27/15 0815 Sennosides/Docusate Sodium (Senna-Time S Tablet) 1 Each Tablet, 2 EA PO BID Prescribed by: DAVID CID on 02/04/19 0637 Simvastatin (Simvastatin) 40 Mg Tablet, 40 MG PO HS, (Reported) Entered as Reported by: BILL STEEN on 01/26/19 131 Tramadol HCl (Tramadol HCl) 50 Mg Tablet, 50 MG PO QID PRN for PAIN-MODERATE (4- 6), (Reported) Entered as Reported by: BILL STEEN on 01/26/19 1325 Review of Systems Constitutional: No chills, No diaphoresis EENTM: No ear pain, No blurred vision, No double vision Respiratory: No cough, No dyspnea on exertion Cardiovascular: No chest pain, No edema Gastrointestinal: No abdominal pain, No diarrhea, No nausea, No vomiting Genitourinary: No discharge Musculoskeletal: No back pain; joint pain, joint swelling, muscle pain Skin: change in color (BRITNI HOWARD) All Other Systems Reviewed Negative Unless Noted: Yes (BRITNI HOWARD) Past Eyyzlqe-Iwtgpb-Sbdjte Hx Patient Social History Tobacco Use?: No Use of E-Cig and/or Vaping dev: No Substance use?: No Alcohol Use?: No Pt feels they are or have been: No (BRITNI HOWARD) Immunizations Up To Date Tetanus Booster (TDap): Unknown PED Vaccines UTD: Yes (BRITNI HOWARD) Seasonal Allergies Seasonal Allergies: Yes (BRITNI HOWARD) Past Medical History Surgery/Hospitalization HX: ASTHMA, HTN, DM, DEPRESSION, ANXIETY, THYROID Surgeries: Yes (KNEE SCOPE, RIGHT FOOT SURGERY) Hysterectomy, Orthopedic Respiratory: Yes (RECURRENT UPPER RESP INFECTION ) Asthma, Pulmonary Embolism, Sleep Apnea Currently Using CPAP: No Currently Using BIPAP: No Cardiac: Yes Chronic Edema/Swelling, High Cholesterol, Hypertension Neurological: No Reproductive Disorders: No Female Reproductive Disorders: Denies Sexually Transmitted Disease: No HIV/AIDS: No Genitourinary: No Gastrointestinal: Yes Gastroesophageal Reflux Musculoskeletal: Yes Arthritis Endocrine: Yes Hypothyroidsim, Diabetes, Non-Insulin dep HEENT: Yes (GLASSES) Loss of Vision: Denies Hearing Impairment: Denies Cancer: No Psychosocial: Yes Anxiety Integumentary: Yes (DRY SKIN ) Blood Disorders: Yes (HX JAMEL PE AND DAUGTER OF BLOOD CLOT POST OP) Adverse Reaction/Blood Tranf: No (N/A) (BRITNI HOWARD) Family Medical History Arthritis 19 FATHER 19 MOTHER Cardiovascular disease 19 FATHER 19 MOTHER Diabetes mellitus 19 MOTHER FH: cancer 19 FATHER FH: lung cancer 19 FATHER Hypercholesterolemia 19 FATHER 19 MOTHER Myocardial infarction 19 MOTHER CAD Over 55 Years Old (BRITNI HOWARD) Physical Exam Vital Signs Vital Signs - First Documented 09/23/22 18:35 Pulse 91 Resp 17 B/P (MAP) 121/80 (94) Pulse Ox 96 O2 Delivery Room Air (BETO,GUSTAVO K DO) Vital Signs Capillary Refill : (BRITNI HOWARD) Height, Weight, BMI Height: 5'8.00" Weight: 213lbs. 0.0oz. [id number]; 33.80 BMI Method:Stated General Appearance: WD/WN, no apparent distress HEENT: PERRL/EOMI, normal ENT inspection, TMs normal, pharynx normal Neck: non-tender, full range of motion, supple, normal inspection Cardiovascular: regular rate, rhythm, no edema, no gallop, no JVD Respiratory: chest non-tender, lungs clear, normal breath sounds, no respiratory distress, no accessory muscle use Gastrointestinal: normal bowel sounds, non tender, soft, no organomegaly Shoulder: normal inspection, non-tender, no evidence of injury Elbow/Forearm: normal inspection, non-tender, no evidence of injury, Left Wrist: Yes normal inspection, Yes non-tender, Yes no evidence of injury, Yes normal ROM (Left wrist) Hand: Left, nail injury, soft tissue tenderness (Tenderness to palpate left distal palmar thumb. Normal active range of motion at the DIP. Nail appears to be intact. No subungual hematoma. 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, no motor/sensory deficits, alert, normal mood/affect, oriented x 3 Skin: other (Abrasion to left palmar thumb.) (BRITNI HOWARD) Progress/Results/Core Measures Results/Orders Medications Given in ED Current Medications Medications Dose Ordered Sig/Barry Route Start Time Stop Time Status Last Admin Dose Admin Diphtheria/ Tetanus/Acell Pertussis 0.5 ml ONCE ONCE IM 09/23/22 18:45 09/23/22 18:46 DC 09/23/22 19:03 0.5 ML (GUSTAVO PÉREZ DO) Vital Signs/I&O 09/23/22 09/23/22 18:35 19:13 Pulse 91 91 Resp 17 B/P (MAP) 121/80 (94) 121/80 Pulse Ox 96 96 O2 Delivery Room Air Room Air (GUSTAVO PÉREZ DO) Blood Pressure Mean: 94 Departure Communication (PCP) Due to mechanism of injury to the left thumb x-ray was ordered. Nail appears to be intact. No evidence of subungual hematoma. Denies of any specific pain. X-ray was negative for acute fracture. Does have abrasion underneath the nail. Dried blood around the nail. Updated her tetanus. Refuse anything for pain. Patient was placed in a finger splint. Discussed with patient that the nail may eventually fall off. Keep the nail attached an this will allow the new nail to have a normal track. Recommend taping. Ice and anti-inflammatories. If any worsening symptoms return back to ED. Discussed wound care (BRINTI HOWARD) Impression Primary Impression: Injury of left thumb Disposition: HOME, SELF-CARE Condition: Stable Departure-Patient Inst. Decision time for Depature: 19:03 (BRITNI HOWARD) Referrals: DONA GONZALEZ DO (PCP/Family) Primary Care Physician Patient Instructions: Di Sims (DC) Add. Discharge Instructions: Recommend ice, anti-inflammatories. Recommend avoiding removing the nail. The nail may fall off over time. If increasing pain to return back to ED. Topical Neosporin to the wound. All discharge instructions reviewed with patient and/or family. Voiced understanding. ATTENDING PHYSICIAN NOTE: I WAS PHYSICALLY PRESENT ER PHYSICIAN, BUT I WAS NOT INVOLVED IN ANY DECISION MAKING OR ANY CARE OF THIS PATIENT AND I AM NOT COLLABORATING PHYSICIAN. (GUSTAVO PÉREZ DO) BRITNI HOWARD Sep 23, 2022 18:41 GUSTAVO PÉREZ DO Sep 23, 2022 23:27
[2022-09-23] MEDS ORDERED: TETANUS,DIPTH,PERTUSS P/F (BOOSTRIX) 0.5 ML VIAL IM ONE (18:45)
--- NOTE | 2022-09-23 19:00 | Diagnostic Imaging Report ---
INDICATION: Left thumb injury. AP, oblique, and lateral views of the left hand are obtained. FINDINGS: No fracture or acute bony abnormality is seen. There is extensive degenerative change throughout the interphalangeal joints and MCP joints of all digits. There is no overt acute abnormality or erosive bony lesion. IMPRESSION: Extensive degenerative changes throughout the left hand with no acute bony abnormality. Dictated by: Dictated on workstation # [id number]
[2022-09-23 19:13] VITALS: BP 121/80
== END 2022-09-23 19:13 | disposition home or self-care (01) ==
LOC: EDUNIT# 18:27 → ER 18:29
DX: S60.312A Abrasion of left thumb, initial encounter (principal); Z23 Encounter for immunization; W23.0XXA Caught, crushed, jammed, or pinched between moving objects, initial encounter; Y92.810 Car as the place of occurrence of the external cause
CPT/HCPCS: 73130; 90715

== ENCOUNTER → 2023-01-08 | Outpatient (CLI) | payer MEDICARE ==
[~2023-01-08] MED LIST changes: +REGADENOSON 0.4 MG/5 ML SYR IV ONE
[2023-01-08] MEDS: CATHETER FLUSH 10 ML SYR IVP PRN ×2 (12:25→13:43)
[2023-01-08 13:35] VITALS: BP 198/80
--- NOTE | 2023-01-08 15:32 | Cardiology Stress Test Report ---
Stress Test Report Date of Procedure/Referring: Date of Procedure: Jan 08, 2023 PCP Isaias Smith Aprn Admitting Physician Admitting Physician: Attending Physician: Rosy Mullre Pa-C Baseline Heart Rate: 65 Baseline Blood Pressure: Blood Pressure Systolic: 198 Blood Pressure Diastolic: 80 Baseline Vitals Vital Signs Date Time Temp Pulse Resp B/P (MAP) Pulse Ox O2 Delivery O2 Flow Rate FiO2 01/08/23 13:35 64 198/80 (119) 98 Baseline EKG: Baseline EKG: NSR Summary After explaining the procedure to the patient, she signed a consent and then brought to the stress nuclear laboratory. Patient received 0.4 mg Lexiscan for stress test, ECG, heart rate and blood pressure were monitored continuously. Resting and stress dose of radio tracer were injected, imaging was acquired and reviewed in short axis, horizontal long axis and vertical long axis views. TID: 1.02 SSS: 2 SDS: 2 EF: 55 Patient tolerated Lexiscan well Breast attenuation with mild decrease uptake at the mid anterior wall with mild reversibility, overall no ischemia or infarction noted on SPECT images Normal left ventricular size with ejection fraction 55% Copy Copies To 1: DONA GONZALEZ BASHAR J MD Jan 08, 2023 15:32
== END ==
LOC: CARD 11:29
PROVIDERS: ATTEND Physician Assistant
DX: I10 Essential (primary) hypertension (principal); R07.9 Chest pain, unspecified
CPT/HCPCS: 78452; 93017; A9502

== ENCOUNTER 2023-01-13 10:29 | Outpatient (RCR) | payer MEDICARE ==
[~2023-01-13 10:29] MED LIST changes: -REGADENOSON 0.4 MG/5 ML SYR IV ONE
== END 2023-01-14 | disposition home or self-care (01) ==
PROVIDERS: ATTEND Nurse Practitioner Family
DX: M51.16 Intervertebral disc disorders with radiculopathy, lumbar region (principal); M25.561 Pain in right knee

== ENCOUNTER 2023-01-30 10:01 | Outpatient (RCR) | payer MEDICARE | END 2023-02-13 | disposition home or self-care (01) | PROVIDERS: ATTEND Nurse Practitioner Family | DX: M51.16 Intervertebral disc disorders with radiculopathy, lumbar region (principal); M25.561 Pain in right knee; I10 Essential (primary) hypertension; Z96.652 Presence of left artificial knee joint ==